=== PATIENT | male | born 1950 | race Caucasian/White ===

== ENCOUNTER 2018-05-23 11:04 | Day surgery (SDC) | payer OTHER ==
[~2018-05-23 11:04] MED LIST: ACETAMINOPHEN 325 MG TAB PO; PROPARACAINE 0.5% OPHTH SOL 15ML OD
[2018-05-23 11:48] LABS: BEDSIDE GLUCOSE 191 MG/DL (80-115)
[2018-05-23] MEDS: LIDOCAINE 3.5 % 1ML OPHTH TOPICAL GEL OU (11:50)
[2018-05-23] MEDS: OFLOXACIN 0.3 % (OCUFLOX) OPTH SOL 5ML OD (11:50)
[2018-05-23] MEDS: TROPICAMIDE 1% OPHTH SOLN 2ML OD (11:51)
[2018-05-23] MEDS: CYCLOPENTOLATE 2% OPHTH SOLN 2ML BTL OD (11:51)
[2018-05-23] MEDS: PHENYLEPHRINE 2.5% OPHTH SOL 2ML OD (11:51)
[2018-05-23] MEDS ORDERED: MIDAZOLAM INJ 2 MG/2 ML VIAL (J2250) As Ordered (12:01)
[2018-05-23] MEDS ORDERED: fentaNYL 100 MCG/2 ML INJECTION (J3010) As Ordered (12:01)
[2018-05-23] MEDS: LIDOCAINE 1% SDV 5 ML VIAL As Ordered (13:08)
[2018-05-23] MEDS: PHENYLEPHRINE HCL 10 % OPHTH. SOL 5ML OD (13:08)
[2018-05-23] MEDS: HEALON DUET (HEALON 10MG/ML 0.55ML & HEALON ENDOCOAT 30MG/ML 0.85ML) As Ordered (13:08)
[2018-05-23] MEDS: CEFUROXIME 1MG/0.1ML INTRACAMERAL INJ As Ordered (13:08)
[2018-05-23] MEDS: POVIDONE-IODINE 5% OPHTH PREP SOL 30ML As Ordered (13:08)
[2018-05-23] MEDS ORDERED: TRIMETHOBENZAMIDE 300 MG CAP PO (14:00)
[2018-05-23] MEDS: KETOROLAC 0.5% OPHTH SOLN OD (14:01)
[2018-05-23] MEDS: AcetaZOLAMIDE 500 MG ER CAP PO (14:01)
== END 2018-05-23 14:22 | disposition home or self-care (01) ==
LOC: M SDC 14:22
DX: H25.11 Age-related nuclear cataract, right eye (principal); I25.10 Atherosclerotic heart disease of native coronary artery without angina pectoris; Z98.61 Coronary angioplasty status; I10 Essential (primary) hypertension; E78.5 Hyperlipidemia, unspecified; G47.30 Sleep apnea, unspecified; E10.9 Type 1 diabetes mellitus without complications; Z79.4 Long term (current) use of insulin; Z79.02 Long term (current) use of antithrombotics/antiplatelets; Z79.899 Other long term (current) drug therapy
CPT/HCPCS: 66984

== ENCOUNTER 2018-06-06 09:32 | Day surgery (SDC) | payer OTHER ==
[2018-06-06] MEDS: ACETYLCHOLINE OPHTH SOLN 1% 2ML (MIOCHOL-E) As Ordered (07:06)
[~2018-06-06 09:32] MED LIST changes: +PHENYLEPHRINE HCL 10 % OPHTH. SOL 5ML OS; -PROPARACAINE 0.5% OPHTH SOL 15ML OD; +PROPARACAINE 0.5% OPHTH SOL 15ML OS
[2018-06-06] MEDS: PHENYLEPHRINE 2.5% OPHTH SOL 2ML OS (10:30)
[2018-06-06] MEDS: TROPICAMIDE 1% OPHTH SOLN 2ML OS (10:30)
[2018-06-06] MEDS: CYCLOPENTOLATE 2% OPHTH SOLN 2ML BTL OS (10:30)
[2018-06-06] MEDS: OFLOXACIN 0.3 % (OCUFLOX) OPTH SOL 5ML OS (10:30)
[2018-06-06] MEDS: LIDOCAINE 3.5 % 1ML OPHTH TOPICAL GEL OU (10:30)
[2018-06-06 10:33] LABS: BEDSIDE GLUCOSE 90 MG/DL (80-115)
[2018-06-06] MEDS ORDERED: MIDAZOLAM INJ 2 MG/2 ML VIAL (J2250) As Ordered (11:30)
[2018-06-06] MEDS ORDERED: fentaNYL 100 MCG/2 ML INJECTION (J3010) As Ordered (11:31)
[2018-06-06] MEDS: POVIDONE-IODINE 5% OPHTH PREP SOL 30ML As Ordered (12:05)
[2018-06-06] MEDS: BALANCED SALT IRRIGATION SOLUTION 500ML BAG (FOR OR EYE MACHINE) As Ordered (12:07)
[2018-06-06] MEDS: HEALON DUET (HEALON 10MG/ML 0.55ML & HEALON ENDOCOAT 30MG/ML 0.85ML) As Ordered (12:07)
[2018-06-06] MEDS: LIDOCAINE 1% SDV 5 ML VIAL As Ordered (12:07)
[2018-06-06] MEDS: CEFUROXIME 1MG/0.1ML INTRACAMERAL INJ As Ordered (12:07)
[2018-06-06] MEDS ORDERED: TRIMETHOBENZAMIDE 300 MG CAP PO (12:30)
[2018-06-06] MEDS: KETOROLAC 0.5% OPHTH SOLN OS (12:35)
[2018-06-06] MEDS: AcetaZOLAMIDE 500 MG ER CAP PO (12:35)
== END 2018-06-06 13:00 | disposition home or self-care (01) ==
LOC: M SDC 09:32
DX: H25.12 Age-related nuclear cataract, left eye (principal); I10 Essential (primary) hypertension; I25.10 Atherosclerotic heart disease of native coronary artery without angina pectoris; I25.2 Old myocardial infarction; Z98.61 Coronary angioplasty status; Z95.1 Presence of aortocoronary bypass graft; E78.5 Hyperlipidemia, unspecified; Z79.02 Long term (current) use of antithrombotics/antiplatelets; G47.33 Obstructive sleep apnea (adult) (pediatric)
CPT/HCPCS: 66984

== ENCOUNTER 2021-05-03 14:54 | Emergency (ER) | payer MEDICARE, OTHER ==
[~2021-05-03] VITALS: Ht 190.5 cm; Wt 104.0 kg
[~2021-05-03 14:54] MED LIST changes: -ACETAMINOPHEN 325 MG TAB PO; +ADVA1AER2; +ALBU83IN; +AMAR1TAB6; +ARIC1TAB2 PO; +ARIC5TAB; +BASA100I SC; +BUPR300T92 PO; +CELE20TA; +CITA20TA6 PO; +COUM1TAB19; +DOXY100C3 PO; +FENO145T7 PO; +GLIM4TAB5 PO; +GLUC1000; +INSULANT; +KLOR10TA; +LASI40TA; +LOPR100T; +LYRI150C; +MELOPOW; +NIAS500T2; +NITR0.4S; +OMEP40CA4 PO; -PHENYLEPHRINE HCL 10 % OPHTH. SOL 5ML OS; +PLAV75TA2; -PROPARACAINE 0.5% OPHTH SOL 15ML OS; +PROV90AE; +PROZ40CA; +RANO5TAB; +SPIR1CAP; +TRAZ50TA; +TRIC1TAB; +XARE20TA PO; +ZETI10TA; +digitek; +januvia
[2021-05-03 15:20] VITALS: BP 158/73
[2021-05-03] MEDS ORDERED: MORPHINE 2 MG/ML 1ML VIAL (J2270) IV ONE (16:15)
[2021-05-03] MEDS ORDERED: ONDANSETRON 4MG/2ML VIAL IV ONE (16:15)
[2021-05-03 17:12] LABS: HEMATOCRIT 43.3 % (42.0-52.0); HEMOGLOBIN 14.8 g/dl (13.5-17.5); MEAN CORPUSCULAR HEMOGLOBIN 35.4 pg (27.0-33.0); MEAN CORPUSCULAR HGB CONC 34.2 g/dl (32.0-36.5); MEAN CORPUSCULAR VOLUME 103.6 fl (80.0-96.0); PLATELET COUNT, AUTOMATED 201 10^3/uL (150-450); RED BLOOD COUNT 4.18 10^6/uL (4.30-6.10); WHITE BLOOD COUNT 9.9 10^3/uL (4.0-10.0)
[2021-05-03 17:30] LABS: PROTHROMBIN TIME 23.1 SECONDS (12.5-14.3)
[2021-05-03 17:34] LABS: BLOOD UREA NITROGEN 15 MG/DL (7-18); CALCIUM LEVEL 9.2 MG/DL (8.8-10.2); CARBON DIOXIDE LEVEL 33 MEQ/L (21-32); CHLORIDE LEVEL 104 MEQ/L (98-107); CREATININE FOR GFR 0.94 MG/DL (0.70-1.30); GLOMERULAR FILTRATION RATE > 60.0 (>42); GLUCOSE, FASTING 199 MG/DL (70-100); POTASSIUM SERUM 3.9 MEQ/L (3.5-5.1); SODIUM LEVEL 144 MEQ/L (136-145)
== END 2021-05-03 18:37 | disposition home or self-care (01) ==
LOC: M ED 14:54
DX: S00.81XA Abrasion of other part of head, initial encounter (principal); W18.39XA Other fall on same level, initial encounter; Y92.018 Other place in single-family (private) house as the place of occurrence of the external cause; I10 Essential (primary) hypertension; E11.9 Type 2 diabetes mellitus without complications; Z91.19 Patient's noncompliance with other medical treatment and regimen; Z79.899 Other long term (current) drug therapy; Z79.01 Long term (current) use of anticoagulants; Z79.4 Long term (current) use of insulin
CPT/HCPCS: 70450; 73502; 73552; 80048; 85027; 85610; 96374; 96375; 99284; J2270; J2405

== ENCOUNTER 2021-08-10 20:44 | Observation (INO) | payer MEDICARE ==
[~2021-08-10] VITALS: Ht 182.9 cm; Wt 115.8 kg
[2021-08-10] MEDS ORDERED: LEVEMIR (INSULIN DETEMIR) 1 UNITS/0.01ML SC SCH (21:00)
[2021-08-10 22:19] LABS: BASO % 0.2 % (0.0-1.0); HEMATOCRIT 41.9 % (42.0-52.0); HEMOGLOBIN 14.1 g/dl (13.5-17.5); LYMPH # 0.7 10^3/uL (1.5-5.0); LYMPH % 11.3 % (24.0-44.0); MEAN CORPUSCULAR HEMOGLOBIN 35.1 pg (27.0-33.0); MEAN CORPUSCULAR HGB CONC 33.7 g/dl (32.0-36.5); MEAN CORPUSCULAR VOLUME 104.2 fl (80.0-96.0); MONO # 0.6 10^3/uL (0.0-0.8); MONO % 9.2 % (2.0-8.0); NEUTROPHILS # 4.8 10^3/uL (1.5-8.5); PLATELET COUNT, AUTOMATED 157 10^3/uL (150-450); RED BLOOD COUNT 4.02 10^6/uL (4.30-6.10); WHITE BLOOD COUNT 6.1 10^3/uL (4.0-10.0)
[2021-08-10] MEDS ORDERED: NS 1,000 ML IV ONE (22:25)
[2021-08-10 22:49] LABS: ALT/SGPT 21 U/L (12-78); BILIRUBIN,DIRECT 0.2 MG/DL (0.0-0.2); BILIRUBIN,TOTAL 1.4 MG/DL (0.2-1.0); BLOOD UREA NITROGEN 12 MG/DL (7-18); CALCIUM LEVEL 8.4 MG/DL (8.8-10.2); CARBON DIOXIDE LEVEL 25 MEQ/L (21-32); CHLORIDE LEVEL 101 MEQ/L (98-107); CK-MB VALUE MASS 2.4 NG/ML (<3.6); CPK CREATINE PHOSPHOKINASE 264 U/L (39-308); CREATININE FOR GFR 0.93 MG/DL (0.70-1.30); GLOMERULAR FILTRATION RATE > 60.0 (>42); GLUCOSE, FASTING 213 MG/DL (70-100); LIPASE 75 U/L (73-393); MB/CK RELATIVE INDEX 0.91 (< OR =4); POTASSIUM SERUM 4.3 MEQ/L (3.5-5.1); SODIUM LEVEL 136 MEQ/L (136-145); TOTAL PROTEIN 7.3 GM/DL (6.4-8.2); TROPONIN I < 0.02 NG/ML (< 0.10)
[2021-08-10 23:01] LABS: RSV AMPLIFICATION NEGATIVE (NEGATIVE)
[2021-08-11] MEDS ORDERED: ACETAMINOPHEN TAB 650MG DOSE (2X325MG) PO PRN (01:50)
[2021-08-11] MEDS ORDERED: POTA1TAB14 PO (01:54)
[2021-08-11] MEDS ORDERED: NITR4TASL SL (01:54)
[2021-08-11] MEDS ORDERED: ADV250INH INH (01:54)
[2021-08-11] MEDS ORDERED: DOXY100C3 PO (01:54)
[2021-08-11] MEDS ORDERED: CELE10TA PO (01:54)
[2021-08-11] MEDS ORDERED: ALBU83IN INH (01:54)
[2021-08-11] MEDS ORDERED: BUPR-332 PO (01:54)
[2021-08-11] MEDS ORDERED: OMEP1CAP73 PO (01:54)
[2021-08-11] MEDS ORDERED: ROPI0.5T3 PO (01:54)
[2021-08-11] MEDS ORDERED: CARA1TAB6 PO (01:54)
[2021-08-11] MEDS ORDERED: ALBU8.5H INH (01:54)
[2021-08-11] MEDS ORDERED: METO1TAB33 PO (01:54)
[2021-08-11] MEDS ORDERED: HOME MED LIST COMPLETE! XX SCH (01:55)
[2021-08-11] MEDS ORDERED: ALBUTEROL 90 MCG/ACT 8GM HFA INHALER INH PRN (02:00)
--- NOTE | 2021-08-11 02:12 | HPEPDOC ---
General Date of Admission Aug 11, 2021 at 01:46 Date of Service: Aug 11, 2021 Chief Complaint The patient is a 71-year-old male admitted with a reason for visit of Covid-19, Generalized Weakness. Source: Patient History of Present Illness Broderick Hager is a 71-year-old male with significant medical history of CAD, CABG, diabetes, HDL, asthma and hypertension who lives alone and arrives with complaints of generalized weakness past 4 days. Tonight, patient reportedly unable to get up from recliner due to his progressive generalized weakness and thus he called EMS. Patient is somewhat poor historian however he is oriented x3. He does admit to memory issues in which he is seeing a provider for. Patient reports that he lives at home and ambulates with a cane. He does d escribe a progressive functional decline over the past year but noticeably increased fatigue/generalized weakness past 4 days. He reports he has a surgical history that leaves him with left lower extremity numbness tingling at baseline occasionally. 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 He describes poor p.o. intake as he has trouble with fork and spoon at times as well as decreased appetite. When asked regarding URI type symptoms he does report some productive cough but denies macedo, sinus congestion, sore throat, sob, palpitations, chest pain, n/v/d, abdominal pain, sensory wesley nges or syncope. During work-up pt was found to be Covid positive. When asked regarding vaccination status patient denies having heard of Covid prior to now. However over time during the exam patient then asked if Covid is the same as Covid13. As far as pt is able to recollect, he has had no recent vaccinations completed. Chest x-ray pending. Nonfocal neuro exam. Patient without leukocytosis or lactic acidosis. Blood glucose 213. Patient will be admitted for further evaluation management of presenting concerns. Home Medications Scheduled Bupropion HCl (Bupropion Xl) 150 Mg Tab.er.24h, 150 MG PO DAILY, (Reported) Citalopram Hydrobromide (Celexa) 10 Mg Tablet, 10 MG PO DAILY, (Reported) Doxycycline Hyclate (Doxycycline Hyclate) 100 Mg Capsule, 100 MG PO BID, (Re ported) STARTED ON 08/09/21 Glimepiride (Glimepiride) 4 Mg Tab, 4 MG PO BID, (Reported) Insulin Glargine,Hum.rec.anlog (Basaglar Kwikpen U-100) 100 Unit/Ml Inj, 60 UNIT SC QHS, (Reported) Metoprolol Succinate (Metoprolol Succinate) 100 Mg Tab.er.24h, 100 MG PO DAILY, (Reported) Omeprazole (Omeprazole) 20 Mg Capsule.dr, 20 MG PO DAILY, (Reported) Potassium Chloride (Potassium Chloride) 20 Meq Tablet.er, 20 MEQ PO DAILY, (Reported) Rivaroxaban (Xarelto) 20 Mg Tab, 20 MG PO DAILY, (Reported) Ropinirole HCl (Ropinirole HCl) 0.5 Mg Tablet, 0.25 MG PO TID, (Reported) Salmeterol/Fluticasone (Advair 250-50 Diskus) 1 Each Blst.w.dev, 1 PUFF INH BID, (Reported) Sucralfate (Carafate) 1 Gm Tablet, 1 GM PO ACHS, (Reported) Scheduled PRN Albuterol Sulf (Albuterol Sulfate) 2.5 Mg/3 Ml Vial.neb, 2.5 MG INH Q4H PRN for SOB/WHEEZING, (Reported) Albuterol Sulfate (Albuterol Sulfate Hfa) 8.5 Gm Hfa.aer.ad, 2 PUFFS INH QID PRN for SHORTNESS OF BREATH, (Reported) Nitroglycerin (Nitrostat) 0.4 Mg Tab.subl, 0.4 MG SL NITRO PRN for CHEST PAIN, (Reported) Allergies Coded Allergies: No Known Drug Allergies (Verified Allergy, Unknown, 08/10/21) Past Medical History Medical History Diabetes, hypertension, CAD, memory impairment Surgical History Cardiac stent CABG, left lower extremity surgery Family History Significant Family History: No pertinent family hx Social History * Smoker: former Smoker (smoked 1ppd for about 10 years; quit 20 years ago ) Alcohol: rarely Recent Travel/Sick Contacts: Reports: Recent travel (Patient alludes to cabin [place] the [place] with other shared cannot members but is vague on timing or if anyone actively sick) Psychosocial History: Depression, Other (Mild cognitive impairment) Patient lives alone, ambulates with cane and describes trouble with utensils. A-FIB/CHADSVASC A-FIB History Current/History of A-Fib/PAF?: Yes Current PO Anticoag Therapy: Yes Review of Systems Constitutional: Reports: Weakness, Fatigue; Denies: Chills, Fever, Night Sweats Eyes: Denies: Pain, Vision change ENT: Denies: Head Aches, Ear Pain, Dysphagia Skin: Denies: Rash, Lesions, Breakdown Pulmonary: Denies: Dyspnea, Cough Cardiovascular: Denies: Chest Pain, Palpitations, Orthopnea, Paroxysmal Noc. Dyspnea, Lt Headedness Gastrointestinal: Denies: Nausea, Vomiting, Abdominal Pain, Diarrhea Genitourinary: Denies: Dysuria, Frequency, Incontinence, Retention Hematologic: Denies: Bruising, Bleeding Excessively Musculoskeletal: Denies: Neck Pain, Back Pain, Joint Pain, Muscle Pain, Spasms Neurological: Denies: Weakness, Numbness, Change in speech, Confusion Psych: Reports: Mood Normal, Memory Issues; Denies: Depression Physical Examination General Exam: Positive: Alert, Cooperative, No Acute Distress Eye Exam: Positive: PERRLA, Conjunctiva & lids normal, EOMI; Negative: Sclera icteric ENT Exam: Positive: Atraumatic, Mucous membr. moist/pink, Pharynx Normal Neck Exam: Positive: Supple; Negative: JVD, thyromegaly Chest Exam: Positive: Clear to auscultation, Normal air movement Heart Exam: Positive: Rate Normal, Regular Rhythm, Normal S1, Normal S2; Negative: Murmurs, Rubs Telemetry: Positive: No significant arrhythmia Abdomen Exam: Positive: Normal bowel sounds, Soft; Negative: Tenderness, Hepatospenomegaly Extremity Exam: Positive: Normal pulses; Negative: Clubbing, Cyanosis, Edema Skin Exam: Positive: Nl turgor and temperature; Negative: Breakdown, Lesion Neuro Exam: Positive: Normal Gait, Normal Speech, Cranial Nerves 3-12 NL, Reflexes 2+ Psych Exam: Positive: Mental status NL, Mood NL, Oriented x 3; Negative: Memory Intact (poor historian, notable MCI) Vital Signs Vital Signs Date Time Temp Pulse Resp B/P (MAP) Pulse Ox O2 Delivery O2 Flow Rate FiO2 08/11/21 01:15 89 16 143/72 (95) 96 Room Air 08/10/21 20:54 97.9 Laboratory Data Labs 24H Laboratory Tests 2 08/10/21 21:53: Immature Granulocyte % (Auto) 0.3, Neutrophils (%) (Auto) 79.0H, Lymphocytes (%) (Auto) 11.3L, Monocytes (%) (Auto) 9.2H, Eosinophils (%) (Auto) 0.0, Basophils (%) (Auto) 0.2, Neutrophils # (Auto) 4.8, Lymphocytes # (Auto) 0.7L, Monocytes # (Auto) 0.6, Eosinophils # (Auto) 0.0, Basophils # (Auto) 0.0, Nucleated Red Blood Cells % (auto) 0.0, Anion Gap 10, Glomerular Filtration Rate > 60.0, Lactic Acid Level 0.7, Calcium Level 8.4L, Total Bilirubin 1.4H, Direct Bilirubin 0.2, Aspartate Amino Transf (AST/SGOT) 34, Alanine Aminotransferase (ALT/SGPT) 21, Alkaline Phosphatase 61, Total Creatine Kinase 264, Creatine Kinase MB 2.4, Creatine Kinase MB Relative Index 0.91, Troponin I < 0.02, Total Protein 7.3, Albumin 3.0L, Albumin/Globulin Ratio 0.7, Lipase 75, Coronavirus (COVID-19)(PCR) POSITIVEA, Influenza Type A (RT-PCR) NEGATIVE, Influenza Type B (RT-PCR) NEGATIVE, Respiratory Syncytial Virus (PCR) NEGATIVE CBC/BMP Laboratory Tests 08/10/21 21:53 Assessment/Plan 1. Generalized weakness in setting of Covid: Patient tolerating room air and not hypoxic. Chest x-ray nonacute. He does describe deconditioning progressive over the past year at baseline. -Monitor pt, respiratory status -Oxygen if needed to keep SPO2 greater than 92% -Antitussives as needed -Scheduled and as needed breathing treatments -Decadron 6mg IV Daily x10 days -Patient uncertain to consent for Mab. Time spent with patient discussing risk factors and explaining Mab as well as Covid. Patient would benefit from further discussion and possible Mab infusion. -A.m. labs 2. Diabetes: -Check A1c. -Monitor patient blood glucose ACHS. Sliding scale insulin. -Patient reports poor p.o. and blood glucose 160-213 during mission process. His long-acting has been placed on hold to monitor response to steroids and whether or not needing continuation. -A.m. labs 3. Paroxysmal A. fib: Telemetry monitoring, continue patient home medications. Continue Xarelto. 4. Depression: Monitor patient mood, encourage nonpharmacologic methods to manage. De-escalation techniques accordingly. Continue patient home medication. 5. GERD: Continue omeprazole and sucralfate 6. Left lower extremity numbness tingling/restless leg syndrome: Continue Requip 7. Cognitive impairment: Patient reports that he does see a provider but again is poor historian regarding who. He does describes having trouble cooking for himself and walking with a cane as well as trouble operating utensils. Per chart review patient had been started on Aricept for memory issues in 2009 however is not listed as an active home med presently. -Patient reports that he does want to go home but would benefit from some assistance at home. Appreciate PT/OT evaluation. Appreciate case management for discharge planning. DVT prophylaxis: SAY Urena CODE STATUS: Full code. Patient reports that he does does not have children. He does describe older siblings alive however 1 with described dementia and he does not elect anyone specifically for medical surrogacy. Additionally, when asked regarding close friends he reports that he does have close friends but "cannot bother those people with it". Patient may benefit from advance care planning/directive discussion for future planning. Disposition: Anticipate less than 2 midnight stay. Plan / VTE VTE Prophylaxis Ordered?: Yes ZORAIDA JASON NP Aug 11, 2021 02:07
[2021-08-11 02:37] LABS: MAGNESIUM LEVEL 1.3 MG/DL (1.8-2.4)
--- NOTE | 2021-08-11 02:49 | REPVR ---
PROCEDURE INFORMATION: Exam: XR Chest Exam date and time: 08/10/21 (11:12pm) Age: 71 years old Clinical indication: Weakness TECHNIQUE: Imaging protocol: Portable CXR Views: 1 view COMPARISON: No relevant prior studies available FINDINGS: No prior chest films are available for comparison. Slightly suboptimal inspiratory effort. Cardiomegaly. S/P sternotomy and CABG surgery. Mild elevation of the left hemidiaphragm. Mildly prominent lung markings. No focal infiltrates. No definite pleural effusions. No pneumothorax. IMPRESSION: No acute findings. Cardiomegaly. S/P sternotomy and CABG surgery. Electronically signed by: Evelin Small On 08/11/2021 02:48:19 AM
[2021-08-11] MEDS: dexameTHASONE 20MG/5ML VIAL (J1100 PER 1MG) IV SCH ×2 (03:25→08:31)
[2021-08-11] MEDS: rOPINIRole 0.25 MG TAB(REQUIP) PO SCH ×4 (04:03→21:03)
[2021-08-11 04:14] VITALS: BP 143/84
[2021-08-11] MEDS ORDERED: GLUCOSE 4GM CHEW TABLET PO PRN (04:15)
[2021-08-11] MEDS ORDERED: DEXTROSE 50% 50 ML SYRINGE IV PRN (04:15)
[2021-08-11] MEDS ORDERED: GLUCAGON INJ 1MG VIAL SC PRN (04:15)
[2021-08-11 04:30] VITALS: O2SAT 93
[2021-08-11 06:16] LABS: BASO % 0.2 % (0.0-1.0); EOS % 0.2 % (0.0-3.0); HEMATOCRIT 40.9 % (42.0-52.0); LYMPH # 0.6 10^3/uL (1.5-5.0); LYMPH % 10.4 % (24.0-44.0); MEAN CORPUSCULAR HEMOGLOBIN 35.8 pg (27.0-33.0); MEAN CORPUSCULAR HGB CONC 34.2 g/dl (32.0-36.5); MEAN CORPUSCULAR VOLUME 104.6 fl (80.0-96.0); MONO # 0.3 10^3/uL (0.0-0.8); MONO % 4.9 % (2.0-8.0); NEUTROPHILS # 4.8 10^3/uL (1.5-8.5); NEUTROPHILS % 83.9 % (36.0-66.0); PLATELET COUNT, AUTOMATED 137 10^3/uL (150-450); RED BLOOD COUNT 3.91 10^6/uL (4.30-6.10); WHITE BLOOD COUNT 5.7 10^3/uL (4.0-10.0)
[2021-08-11 06:31] LABS: HEMOGLOBIN A1c 10.2 %
[2021-08-11 06:42] LABS: BLOOD UREA NITROGEN 11 MG/DL (7-18); CARBON DIOXIDE LEVEL 26 MEQ/L (21-32); CHLORIDE LEVEL 101 MEQ/L (98-107); CREATININE FOR GFR 0.79 MG/DL (0.70-1.30); GLOMERULAR FILTRATION RATE > 60.0 (>42); GLUCOSE, FASTING 182 MG/DL (70-100); POTASSIUM SERUM 3.4 MEQ/L (3.5-5.1); SODIUM LEVEL 137 MEQ/L (136-145)
[2021-08-11] MEDS: ADVAIR HFA 115/21MCG INHALER INH SCH ×2 (08:00→19:58)
[2021-08-11] MEDS: buPROPion **XL** TABLET 150MG (WELLBUTRIN XL) PO SCH (08:29)
[2021-08-11] MEDS: OMEPRAZOLE 20 MG CAP PO SCH (08:29)
[2021-08-11] MEDS: CitaloPRAM (CeleXA) 10 MG TABLET PO SCH (08:29)
[2021-08-11] MEDS: RIVAROXABAN 20 MG TAB (XARELTO) PO SCH (08:30)
[2021-08-11] MEDS: POTASSIUM CHLORIDE 10MEQ SR TABLET PO SCH (08:30)
[2021-08-11] MEDS: METOPROLOL SUCC (TopROL XL) 100MG *XL* TAB PO SCH (08:30)
[2021-08-11] MEDS: SUCRALFATE 1 GM TAB PO SCH ×4 (08:30→21:00)
[2021-08-11] MEDS: HumaLOG INSULIN (NovoLOG) PER UNIT SC SCH ×3 (08:31→17:21)
[2021-08-11] MEDS ORDERED: POTASSIUM CHLORIDE 10MEQ SR TABLET PO ONE (09:00)
[2021-08-11] MEDS ORDERED: REMDESIVIR 200 MG in NS 250 ML IV ONE (11:00)
[2021-08-11] MEDS ORDERED: SODIUM CHLORIDE 0.9% INJ 10 ML SYR IV ONE (11:00)
[2021-08-11 14:00] VITALS: BP 134/79
--- NOTE | 2021-08-11 17:45 | IPNPDOC ---
Date Seen The patient was seen on 08/11/21. Progress Note SUBJECTIVE: Currently on 4 L nasal cannula, awake and at his baseline. No acute events overnight. Denies chest pain, increased shortness of breath, fevers, chills, nausea, vomiting. OBJECTIVE: VITAL SIGNS: Please see below PHYSICAL EXAMINATION: CONSTITUTIONAL: No acute distress, resting comfortably, AAO x 3 EYES: PERRLA, EOM intact HENT, MOUTH: Normocephalic, atraumatic, moist mucous membranes, NC in place NECK: SUPPLE, no JVD, no lymphadenopathy, no carotid bruit CV: Regular rate and rhythm, S1S2 normal, no murmurs/rubs/gallops RESPIRATORY: decreased breath sounds b/l, no rales/rhonchi/wheezes GI: BS positive in 4 quadrants, soft, nontender, nondistended, no rebound or guarding, no organomegaly : Deferred MUSCULOSKELETAL: Normal ROM. No cyanosis, clubbing, swelling, joint deformity, extremity edema INTEGUMENTARY: Intact, no rashes, no lesions, no erythema NEUROLOGIC: Cranial Nerves II-XII are intact, no focal deficits PSYCHIATRIC: Mood and affect are normal CURRENT MEDICATIONS: Please see below LABORATORY DATA: Please see below IMAGING: See chart MICRO: F/u UA, blood cultures ASSESSMENT: 71 y/o M admitted for generalized weakness 2/2 to COVID-19 infection. PLAN: Generalized weakness 2/2 to COVID-19 infection -Increased lethargy, decreased appetite -likely baseline deconditioned state, worsened over past year -D/c decadron, c/w remdesivir -PT: Pt is currently deconditioned and functioning below his PLOF, will benefit from skilled PT to improve safety and (I) prior to d/c. updated. -Daily labs -Monitor pt, respiratory status -Encourage Po intake, PT/OT COVID-19 infection -Remains on RA -Remdesivir only, cannot to MAB as inpatient -COVID labs per protocol Hypokalemia -Supplement PRN DM uncontrolled -HbA1c >10, B S>300 today -Monitor patient blood glucose ACHS. Sliding scale insulin. -Restarting HS levemir at 40 [address], not home dose -Daily labs Paroxysmal A. fib -Stable, rate controlled -C/w home meds. xarelto Depression -Stable -C/w home meds GERD -Continue omeprazole and sucralfate Left lower extremity numbness tingling/restless leg syndrome -continue Requip Cognitive impairment -At baseline. -Patient reports that he does see a provider but again is poor historian regarding who. He does describes having trouble cooking for himself and walking with a cane as well as trouble operating utensils. Per chart review patient had been started on Aricept for memory issues in 2009 however is not listed as an active home med presently. -Patient reports that he does want to go home but would benefit from some assistance at home. Appreciate PT/OT evaluation. Appreciate case management for discharge planning. DVT prophylaxis: SAY Urena Disposition: C/w PT/OT. Plan is d/c home when medically improved. VS, I&O, 24H, Fishbone Vital Signs/I&O Vital Signs Date Time Temp Pulse Resp B/P (MAP) Pulse Ox O2 Delivery O2 Flow Rate FiO2 08/11/21 14:00 99.5 77 20 134/79 (97) 91 Room Air I&O- Last 24 Hours up to 6 AM 08/11/21 06:00 Intake Total 1000 ml Output Total 100 ml Balance 900 ml Laboratory Data 24H LABS Laboratory Tests 2 08/10/21 21:53: Immature Granulocyte % (Auto) 0.3, Neutrophils (%) (Auto) 79.0H, Lymphocytes (%) (Auto) 11.3L, Monocytes (%) (Auto) 9.2H, Eosinophils (%) (Auto) 0.0, Basophils (%) (Auto) 0.2, Neutrophils # (Auto) 4.8, Lymphocytes # (Auto) 0.7L, Monocytes # (Auto) 0.6, Eosinophils # (Auto) 0.0, Basophils # (Auto) 0.0, Nucleated Red Blood Cells % (auto) 0.0, Anion Gap 10, Glomerular Filtration Rate > 60.0, Lactic Acid Level 0.7, Calcium Level 8.4L, Magnesium Level 1.3L, Total Bilirubin 1.4H, Direct Bilirubin 0.2, Aspartate Amino Transf (AST/SGOT) 34, Alanine Aminotransferase (ALT/SGPT) 21, Alkaline Phosphatase 61, Total Creatine Kinase 264, Creatine Kinase MB 2.4, Creatine Kinase MB Relative Index 0.91, Troponin I < 0.02, Total Protein 7.3, Albumin 3.0L, Albumin/Globulin Ratio 0.7, Lipase 75, Coronavirus (COVID-19)(PCR) POSITIVEA, Influenza Type A (RT-PCR) NEGATIVE, Influenza Type B (RT-PCR) NEGATIVE, Respiratory Syncytial Virus (PCR) NEGATIVE 08/11/21 03:54: Bedside Glucose (Misc Panel) 157H 08/11/21 05:51: Immature Granulocyte % (Auto) 0.4, Neutrophils (%) (Auto) 83.9H, Lymphocytes (%) (Auto) 10.4L, Monocytes (%) (Auto) 4.9, Eosinophils (%) (Auto) 0.2, Basophils (%) (Auto) 0.2, Neutrophils # (Auto) 4.8, Lymphocytes # (Auto) 0.6L, Monocytes # (Auto) 0.3, Eosinophils # (Auto) 0.0, Basophils # (Auto) 0.0, Nucleated Red Blood Cells % (auto) 0.0, Anion Gap 10, Glomerular Filtration Rate > 60.0, Calcium Level 8.0L, Estimated Mean Plasma Glucose 246H, Hemoglobin A1c 10.2 08/11/21 11:42: Bedside Glucose (Misc Panel) 366H 08/11/21 11:46: D-Dimer, Quantitative 816.09H 08/11/21 16:52: Bedside Glucose (Misc Panel) 320H CBC/BMP Laboratory Tests 08/10/21 21:53 08/11/21 05:51 Virginia Goetz MD Aug 11, 2021 17:45
[2021-08-11 20:55] VITALS: BP 133/64
[2021-08-11 21:00] VITALS: O2SAT 95
[2021-08-11] MEDS ORDERED: HumaLOG INSULIN (NovoLOG) PER UNIT SC SCH (21:00)
[2021-08-11] MEDS ORDERED: LEVEMIR (INSULIN DETEMIR) 1 UNITS/0.01ML SC SCH (21:00)
[2021-08-12] VITALS: O2SAT 96
[2021-08-12 04:00] VITALS: O2SAT 97
[2021-08-12 04:43] VITALS: BP 138/76
[2021-08-12 07:06] LABS: HEMATOCRIT 42.4 % (42.0-52.0); HEMOGLOBIN 14.3 g/dl (13.5-17.5); LYMPH # 0.8 10^3/uL (1.5-5.0); LYMPH % 11.5 % (24.0-44.0); MEAN CORPUSCULAR HEMOGLOBIN 35.1 pg (27.0-33.0); MEAN CORPUSCULAR HGB CONC 33.7 g/dl (32.0-36.5); MEAN CORPUSCULAR VOLUME 104.2 fl (80.0-96.0); MONO # 0.4 10^3/uL (0.0-0.8); NEUTROPHILS # 5.4 10^3/uL (1.5-8.5); PLATELET COUNT, AUTOMATED 153 10^3/uL (150-450); RED BLOOD COUNT 4.07 10^6/uL (4.30-6.10); WHITE BLOOD COUNT 6.5 10^3/uL (4.0-10.0)
[2021-08-12 07:33] LABS: BLOOD UREA NITROGEN 18 MG/DL (7-18); CALCIUM LEVEL 8.2 MG/DL (8.8-10.2); CARBON DIOXIDE LEVEL 28 MEQ/L (21-32); CHLORIDE LEVEL 104 MEQ/L (98-107); CREATININE FOR GFR 0.81 MG/DL (0.70-1.30); GLOMERULAR FILTRATION RATE > 60.0 (>42); GLUCOSE, FASTING 220 MG/DL (70-100); MAGNESIUM LEVEL 1.9 MG/DL (1.8-2.4); POTASSIUM SERUM 4.3 MEQ/L (3.5-5.1); SODIUM LEVEL 140 MEQ/L (136-145)
[2021-08-12] MEDS: HumaLOG INSULIN (NovoLOG) PER UNIT SC SCH ×2 (07:45→12:41)
[2021-08-12 08:00] VITALS: O2SAT 97
[2021-08-12] MEDS: ADVAIR HFA 115/21MCG INHALER INH SCH (08:37)
[2021-08-12] MEDS: buPROPion **XL** TABLET 150MG (WELLBUTRIN XL) PO SCH (08:59)
[2021-08-12] MEDS: POTASSIUM CHLORIDE 10MEQ SR TABLET PO SCH (08:59)
[2021-08-12] MEDS: OMEPRAZOLE 20 MG CAP PO SCH (08:59)
[2021-08-12] MEDS: rOPINIRole 0.25 MG TAB(REQUIP) PO SCH (08:59)
[2021-08-12] MEDS: SUCRALFATE 1 GM TAB PO SCH ×2 (09:00→12:41)
[2021-08-12] MEDS: RIVAROXABAN 20 MG TAB (XARELTO) PO SCH (09:00)
[2021-08-12] MEDS: CitaloPRAM (CeleXA) 10 MG TABLET PO SCH (09:00)
[2021-08-12 09:02] VITALS: BP 133/66
[2021-08-12] MEDS: METOPROLOL SUCC (TopROL XL) 100MG *XL* TAB PO SCH (09:02)
[2021-08-12] MEDS ORDERED: REMDESIVIR 100 MG in NS 250 ML IV SCH ×3 (11:00→17:45)
[2021-08-12] MEDS ORDERED: SODIUM CHLORIDE 0.9% INJ 10 ML SYR IV SCH ×3 (11:00→14:00)
--- NOTE | 2021-08-12 20:58 | DS.PDOC ---
Discharge Summary General Date of Admission Aug 11, 2021 at 01:46 Date of Discharge 08/12/21 Attending Physician: Virginia Goetz MD Discharge Summary HPI: Broderick Hager is a 71-year-old male with significant medical history of CAD, CABG, diabetes, HDL, asthma and hypertension who lives alone and arrives with complaints of generalized weakness past 4 days. Tonight, patient reportedly unable to get up from recliner due to his progressive generalized weakness and thus he called EMS. Patient is somewhat poor historian however he is oriented x3. He does admit to memory issues in which he is seeing a provider for. Patient reports that he lives at home and ambulates with a cane. He does describe a progressive functional decline over the past year but noticeably increased fatigue/generalized weakness past 4 days. He reports he has a surgical history that leaves him with left lower extremity numbness tingling at baseline occasionally. 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 He describes poor p.o. intake as he has trouble with fork and spoon at times as well as decreased appetite. When asked regarding URI type symptoms he does report some productive cough but denies m[place]o, sinus congestion, sore throat, sob, palpitations, chest pain, n/v/d, abdominal pain, sensory changes or syncope. During work-up pt was found to be Covid positive. When asked regarding vaccination status patient denies having heard of Covid prior to now. However over time during the exam patient then asked if Covid is the same as Covid13. As far as pt is able to recollect, he has had no recent vaccinations completed. Chest x-ray pending. Nonfocal neuro exam. Patient without leukocytosis or lactic acidosis. Blood glucose 213. Patient will be admitted for further evaluation management of presenting concerns. HOSPITAL COURSE: The patient remained on room air without difficulty breathing, chest pain, nausea, vomiting. The patient participated with physical therapy both days he was here and each day continued to improve. He was resumed on all his home medications. By 08/12/2021 the patient was cleared by physical therapy and appeared much more awake, improved appetite. He was discharged home to follow-up with his primary care provider with a home health referral. At the time of discharge the patient had no acute complaints PMH: Diabetes, hypertension, CAD, memory impairment SURGICAL HX: Cardiac stent CABG, left lower extremity surgery FAMILY HX: Significant Family History: No pertinent family hx SOCIAL HX: Smoker: former Smoker (smoked 1ppd for about 10 years; quit 20 years ago ) Alcohol: rarely Recent Travel/Sick Contacts: Reports: Recent travel (Patient alludes to cabin [place] with other shared cannot members but is vague on timing or if anyone actively sick) Psychosocial History: Depression, Other (Mild cognitive impairment) Patient lives alone, ambulates with cane and describes trouble with utensils. DISCHARGE MEDS: Please see below PHYSICAL EXAMINATION: CONSTITUTIONAL: No acute distress, more conversant today, AAO x 3 EYES: PERRLA, EOM intact HENT, MOUTH: Normocephalic, atraumatic, moist mucous membranes NECK: SUPPLE, no JVD, no lymphadenopathy, no carotid bruit CV: Regular rate and rhythm, S1S2 normal, no murmurs/rubs/gallops RESPIRATORY: CTAB, no rales/rhonchi/wheezes GI: BS positive in 4 quadrants, soft, nontender, nondistended, no rebound or guarding, no organomegaly : Deferred MUSCULOSKELETAL: Normal ROM. No cyanosis, clubbing, swelling, joint deformity, extremity edema INTEGUMENTARY: Intact, no rashes, no lesions, no erythema NEUROLOGIC: Cranial Nerves II-XII are intact, no focal deficits PSYCHIATRIC: Mood and affect are normal CURRENT MEDICATIONS: Please see below LABORATORY DATA: Please see below IMAGING: See chart MICRO: Bcx NG ASSESSMENT: 71 y/o M admitted for generalized weakness 2/2 to COVID-19 infection. PLAN: Generalized weakness 2/2 to COVID-19 infection, baseline deconditioned state worsened over past year -Improved within 24 hours, remains on RA -PT: cleared for home today -O/P PT/OT, encourage continued monitoring of PO intake, close PCP f/u COVID-19 infection -Remains on RA -S/p Remdesivir , could not give MAB as inpatient but advise patient to get as o/p -COVID labs per protocol Hypokalemia -Supplement PRN DM uncontrolled -C/w home meds Paroxysmal A. fib -Stable, rate controlled -C/w home meds. xarelto Depression -Stable -C/w home meds GERD -Continue omeprazole and sucralfate Left lower extremity numbness tingling/restless leg syndrome -continue Requip Cognitive impairment -At baseline. -Patient reports that he does see a provider but again is poor historian regarding who. He does describes having trouble cooking for himself and walking with a cane as well as trouble operating utensils. Per chart review patient had been started on Aricept for memory issues in 2009 however is not listed as an active home med presently. Disposition:D/c home today with home health referral TIME SPENT ON DISCHARGE: 35 minutes. Vital Signs/I&Os Vital Signs Date Time Temp Pulse Resp B/P (MAP) Pulse Ox O2 Delivery O2 Flow Rate FiO2 08/12/21 09:02 87 133/66 08/12/21 08:00 97 Room Air 08/12/21 04:43 98.1 20 I&O- Last 24 Hours up to 6 AM 08/12/21 06:00 Intake Total 1380 ml Output Total 900 ml Balance 480 ml Laboratory Data Labs 24H Laboratory Tests 2 08/11/21 20:59: Bedside Glucose (Misc Panel) 263H 08/12/21 05:32: Immature Granulocyte % (Auto) 0.5, Neutrophils (%) (Auto) 82.0H, Lymphocytes (%) (Auto) 11.5L, Monocytes (%) (Auto) 6.0, Eosinophils (%) (Auto) 0.0, Basophils (%) (Auto) 0.0, Neutrophils # (Auto) 5.4, Lymphocytes # (Auto) 0.8L, Monocytes # (Auto) 0.4, Eosinophils # (Auto) 0.0, Basophils # (Auto) 0.0, Nucleated Red Blood Cells % (auto) 0.0, Anion Gap 8, Glomerular Filtration Rate > 60.0, Calcium Level 8.2L, Magnesium Level 1.9 08/12/21 11:54: Bedside Glucose (Misc Panel) 274H CBC/BMP Laboratory Tests 08/12/21 05:32 FSBS Laboratory Tests Test 08/11/21 20:59 08/12/21 11:54 Range/Units Bedside Glucose (Misc Panel) 263 274 83-110 MG/DL Microbiology Microbiology 08/11/21 Blood Culture - Preliminary, Resulted No growth after 24 hours . All specim... 08/11/21 Blood Culture - Preliminary, Resulted No growth after 24 hours . All specim... Discharge Medications Scheduled Bupropion HCl (Bupropion Xl) 150 Mg Tab.er.24h, 150 MG PO DAILY, (Reported) Citalopram Hydrobromide (Celexa) 10 Mg Tablet, 10 MG PO DAILY, (Reported) Doxycycline Hyclate (Doxycycline Hyclate) 100 Mg Capsule, 100 MG PO BID, (Reported) STARTED ON 08/09/21 Glimepiride (Glimepiride) 4 Mg Tab, 4 MG PO BID, (Reported) Insulin Glargine,Hum.rec.anlog (Basaglar Kwikpen U-100) 100 Unit/Ml Inj, 60 UNIT SC QHS, (Reported) Metoprolol Succinate (Metoprolol Succinate) 100 Mg Tab.er.24h, 100 MG PO DAILY, (Reported) Omeprazole (Omeprazole) 20 Mg Capsule.dr, 20 MG PO DAILY, (Reported) Potassium Chloride (Potassium Chloride) 20 Meq Tablet.er, 20 MEQ PO DAILY, (Reported) Rivaroxaban (Xarelto) 20 Mg Tab, 20 MG PO DAILY, (Reported) Ropinirole HCl (Ropinirole HCl) 0.5 Mg Tablet, 0.25 MG PO TID, (Reported) Salmeterol/Fluticasone (Advair 250-50 Diskus) 1 Each Blst.w.dev, 1 PUFF INH BID, (Reported) Sucralfate (Carafate) 1 Gm Tablet, 1 GM PO ACHS, (Reported) Scheduled PRN Albuterol Sulf (Albuterol Sulfate) 2.5 Mg/3 Ml Vial.neb, 2.5 MG INH Q4H PRN for SOB/WHEEZING, (Reported) Albuterol Sulfate (Albuterol Sulfate Hfa) 8.5 Gm Hfa.aer.ad, 2 PUFFS INH QID PRN for SHORTNESS OF BREATH, (Reported) Nitroglycerin (Nitrostat) 0.4 Mg Tab.subl, 0.4 MG SL NITRO PRN for CHEST PAIN, (Reported) Allergies Coded Allergies: No Known Drug Allergies (Verified Allergy, Unknown, 08/10/21) Virginia Goetz MD Aug 12, 2021 20:58
[2021-08-12] MEDS ORDERED: LEVEMIR (INSULIN DETEMIR) 1 UNITS/0.01ML SC SCH (21:00)
--- NOTE | 2021-08-14 06:26 | ECGEPIP ---
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
== END 2021-08-12 14:45 | disposition home health service (06) ==
LOC: M ED 20:44 → M ED INP 08-11 01:46 → ENRESERV 08-11 02:17 → M 4MAIN 08-11 04:15
PROVIDERS: ADMIT Family Medicine; ATTEND Family Medicine
DX: U07.1 COVID-19 (principal); R53.1 Weakness; E87.6 Hypokalemia; E11.65 Type 2 diabetes mellitus with hyperglycemia; I48.0 Paroxysmal atrial fibrillation; F32.9 Major depressive disorder, single episode, unspecified; K21.9 Gastro-esophageal reflux disease without esophagitis; G25.81 Restless legs syndrome; R20.0 Anesthesia of skin; R41.3 Other amnesia; I25.10 Atherosclerotic heart disease of native coronary artery without angina pectoris; E78.5 Hyperlipidemia, unspecified; Z95.1 Presence of aortocoronary bypass graft; I10 Essential (primary) hypertension; J45.909 Unspecified asthma, uncomplicated; R68.89 Other general symptoms and signs; Z79.899 Other long term (current) drug therapy; Z79.2 Long term (current) use of antibiotics; Z79.01 Long term (current) use of anticoagulants; Z79.4 Long term (current) use of insulin; Z79.51 Long term (current) use of inhaled steroids; Z87.891 Personal history of nicotine dependence
CPT/HCPCS: 36415; 71045; 80048; 80076; 82550; 82553; 83036; 83605; 83690; 83735; 84484; 85025; 85379; 87040; 87631; 93005; 93041; 96361; 96374; 96375; 96376; 97161; 97165; 97530; 99285; G0378; J1100

== ENCOUNTER 2022-03-30 19:41 | Inpatient (IN) | payer MEDICARE ==
[~2022-03-30] VITALS: Ht 188 cm; Wt 95.8 kg
[~2022-03-30 19:41] MED LIST changes: +ADV250INH INH; +ALBU2.5V10 INH; +ALBU8.5H INH; +BUPR-332 PO; +CARA1TAB6 PO; +CELE10TA PO; +METO1TAB33 PO; +NITR4TASL SL; +OMEP1CAP73 PO; +POTA1TAB14 PO; +ROPI0.5T3 PO
[2022-03-30 21:48] LABS: BASO % 0.2 % (0.0-1.0); EOS % 0.1 % (0.0-3.0); HEMATOCRIT 43.5 % (42.0-52.0); HEMOGLOBIN 15.4 g/dl (13.5-17.5); LYMPH # 1.8 10^3/uL (1.5-5.0); LYMPH % 12.2 % (24.0-44.0); MEAN CORPUSCULAR HEMOGLOBIN 35.7 pg (27.0-33.0); MEAN CORPUSCULAR HGB CONC 35.4 g/dl (32.0-36.5); MEAN CORPUSCULAR VOLUME 100.9 fl (80.0-96.0); MONO % 7.1 % (2.0-8.0); NEUTROPHILS # 11.8 10^3/uL (1.5-8.5); NEUTROPHILS % 79.9 % (36.0-66.0); PLATELET COUNT, AUTOMATED 238 10^3/uL (150-450); RED BLOOD COUNT 4.31 10^6/uL (4.30-6.10); WHITE BLOOD COUNT 14.7 10^3/uL (4.0-10.0)
[2022-03-30 22:09] LABS: ALBUMIN 3.3 GM/DL (3.2-5.2); ALT/SGPT 55 U/L (12-78); BILIRUBIN,DIRECT 0.2 MG/DL (0.0-0.2); BLOOD UREA NITROGEN 20 MG/DL (7-18); CALCIUM LEVEL 9.1 MG/DL (8.8-10.2); CARBON DIOXIDE LEVEL 28 MEQ/L (21-32); CHLORIDE LEVEL 104 MEQ/L (98-107); CK-MB VALUE MASS 6.7 NG/ML (<3.6); CREATININE FOR GFR 1.26 MG/DL (0.70-1.30); GLOMERULAR FILTRATION RATE > 60.0 (>42); GLUCOSE, FASTING 209 MG/DL (70-100); MB/CK RELATIVE INDEX 2.06 (< OR =4); POTASSIUM SERUM 4.7 MEQ/L (3.5-5.1); SODIUM LEVEL 138 MEQ/L (136-145); TOTAL PROTEIN 7.3 GM/DL (6.4-8.2)
[2022-03-30 22:18] LABS: RSV AMPLIFICATION NEGATIVE (NEGATIVE)
[2022-03-31] MEDS ORDERED: ISOVUE-370 76% 100ML VIAL As Ordered ONE (00:20)
[2022-03-31] MEDS ORDERED: METO1TAB7 PO (04:10)
[2022-03-31] MEDS ORDERED: PRED10TA2 PO (04:10)
[2022-03-31] MEDS ORDERED: TRUL10IN SC (04:10)
[2022-03-31] MEDS ORDERED: EZET10TA21 PO (04:10)
[2022-03-31] MEDS ORDERED: HOME MED LIST COMPLETE! XX SCH (04:15)
[2022-03-31] MEDS ORDERED: ASPIRIN 81 MG CHEW TABLET PO ONE (05:15)
[2022-03-31] MEDS ORDERED: GLUCAGON INJ 1MG VIAL SC PRN (05:15)
[2022-03-31] MEDS ORDERED: DEXTROSE 50% 50 ML SYRINGE IV PRN (05:15)
[2022-03-31] MEDS ORDERED: GLUCOSE 4GM CHEW TABLET PO PRN (05:15)
[2022-03-31] MEDS ORDERED: ACETAMINOPHEN TAB 650MG DOSE (2X325MG) PO PRN (05:15)
[2022-03-31] MEDS ORDERED: HEPARIN SOD (PORCINE) 5000UNITS/ML 1ML VIAL/SYRINGE SC SCH (06:00)
[2022-03-31] MEDS: CLOPIDOGREL 75 MG TAB PO SCH (06:46)
[2022-03-31] MEDS: INSULIN LISPRO (NovoLOG) PER UNIT SC SCH ×3 (07:30→17:45)
[2022-03-31 07:55] LABS: BASO % 0.2 % (0.0-1.0); EOS % 0.1 % (0.0-3.0); HEMATOCRIT 44.2 % (42.0-52.0); HEMOGLOBIN 15.5 g/dl (13.5-17.5); LYMPH # 1.7 10^3/uL (1.5-5.0); LYMPH % 10.8 % (24.0-44.0); MEAN CORPUSCULAR HEMOGLOBIN 35.6 pg (27.0-33.0); MEAN CORPUSCULAR HGB CONC 35.1 g/dl (32.0-36.5); MEAN CORPUSCULAR VOLUME 101.6 fl (80.0-96.0); MONO # 1.2 10^3/uL (0.0-0.8); MONO % 7.4 % (2.0-8.0); NEUTROPHILS % 81.1 % (36.0-66.0); PLATELET COUNT, AUTOMATED 224 10^3/uL (150-450); RED BLOOD COUNT 4.35 10^6/uL (4.30-6.10)
[2022-03-31] MEDS: ADVAIR HFA 115/21MCG INHALER INH SCH ×2 (08:00→19:17)
[2022-03-31 08:04] LABS: BLOOD UREA NITROGEN 17 MG/DL (7-18); CALCIUM LEVEL 9.1 MG/DL (8.8-10.2); CARBON DIOXIDE LEVEL 29 MEQ/L (21-32); CHLORIDE LEVEL 104 MEQ/L (98-107); CHOLESTEROL LEVEL 145 MG/DL (<200); CHOLESTEROL RISK RATIO 4.393 (<5); CREATININE FOR GFR 1.11 MG/DL (0.70-1.30); GLOMERULAR FILTRATION RATE > 60.0 (>42); GLUCOSE, FASTING 125 MG/DL (70-100); HDL CHOLESTEROL 33 MG/DL (>40); LDL CHOLESTEROL 78 MG/DL (<100); MAGNESIUM LEVEL 1.5 MG/DL (1.8-2.4); NON-HDL-C 112 MG/DL; POTASSIUM SERUM 3.6 MEQ/L (3.5-5.1); SODIUM LEVEL 138 MEQ/L (136-145); TRIGLYCERIDES LEVEL 169 MG/DL (<150)
[2022-03-31] MEDS ORDERED: ALBUTEROL SULFATE 2.5 MG/0.5 ML INH NEB SOLN INH PRN (08:55)
[2022-03-31] MEDS ORDERED: ALBUTEROL 90 MCG/ACT 8GM HFA INHALER INH PRN (08:55)
[2022-03-31] MEDS: OMEPRAZOLE 20MG CAP PO SCH (09:00)
[2022-03-31] MEDS: EZETIMIBE 10MG TABLET (ZETIA) PO SCH (09:00)
[2022-03-31] MEDS: buPROPion **XL** TABLET 150MG (WELLBUTRIN XL) PO SCH (09:00)
[2022-03-31] MEDS: POTASSIUM CHLORIDE 10MEQ SR TABLET PO SCH (09:00)
[2022-03-31] MEDS ORDERED: MAG SULF 1GM/100ML (MAG RUN) 1 GM in IV 1 EA IV ONE (09:00)
[2022-03-31 10:30] VITALS: BP 133/84
[2022-03-31] MEDS: CitaloPRAM (CeleXA) 10 MG TABLET PO SCH (11:43)
[2022-03-31 14:00] VITALS: BP 137/78
[2022-03-31] MEDS: rOPINIRole 0.25 MG TAB(REQUIP) PO SCH ×2 (17:45→20:37)
[2022-03-31] MEDS: RIVAROXABAN 20MG TAB (XARELTO) PO SCH (17:45)
[2022-03-31] MEDS: METOPROLOL SUCC (TopROL XL) 50MG **XL** TAB PO SCH (17:46)
[2022-03-31] MEDS ORDERED: INSULIN LISPRO (NovoLOG) PER UNIT SC SCH (21:00)
[2022-03-31] MEDS ORDERED: LEVEMIR (INSULIN DETEMIR) 1 UNITS/0.01ML SC SCH (21:00)
[2022-03-31 22:00] VITALS: BP 138/77
[2022-03-31] MEDS: SINEMET 25-100 MG TAB PO SCH (22:39)
[2022-04-01 05:02] VITALS: BP 137/80
[2022-04-01 06:28] LABS: HEMATOCRIT 44.6 % (42.0-52.0); HEMOGLOBIN 15.5 g/dl (13.5-17.5); MEAN CORPUSCULAR HEMOGLOBIN 35.1 pg (27.0-33.0); MEAN CORPUSCULAR HGB CONC 34.8 g/dl (32.0-36.5); MEAN CORPUSCULAR VOLUME 101.1 fl (80.0-96.0); PLATELET COUNT, AUTOMATED 207 10^3/uL (150-450); RED BLOOD COUNT 4.41 10^6/uL (4.30-6.10); WHITE BLOOD COUNT 14.8 10^3/uL (4.0-10.0)
[2022-04-01 07:04] LABS: BLOOD UREA NITROGEN 20 MG/DL (7-18); CALCIUM LEVEL 9.3 MG/DL (8.8-10.2); CARBON DIOXIDE LEVEL 25 MEQ/L (21-32); CHLORIDE LEVEL 102 MEQ/L (98-107); CREATININE FOR GFR 1.19 MG/DL (0.70-1.30); GLOMERULAR FILTRATION RATE > 60.0 (>42); GLUCOSE, FASTING 235 MG/DL (70-100); MAGNESIUM LEVEL 1.8 MG/DL (1.8-2.4); SODIUM LEVEL 135 MEQ/L (136-145)
[2022-04-01] MEDS: ADVAIR HFA 115/21MCG INHALER INH SCH (08:00)
[2022-04-01] MEDS: INSULIN LISPRO (NovoLOG) PER UNIT SC SCH ×4 (08:41→18:19)
[2022-04-01] MEDS: buPROPion **XL** TABLET 150MG (WELLBUTRIN XL) PO SCH (08:43)
[2022-04-01] MEDS: EZETIMIBE 10MG TABLET (ZETIA) PO SCH (08:43)
[2022-04-01] MEDS: OMEPRAZOLE 20MG CAP PO SCH (08:43)
[2022-04-01] MEDS: rOPINIRole 0.25 MG TAB(REQUIP) PO SCH ×2 (08:44→15:06)
[2022-04-01] MEDS: POTASSIUM CHLORIDE 10MEQ SR TABLET PO SCH (08:44)
[2022-04-01] MEDS: SINEMET 25-100 MG TAB PO SCH ×2 (08:44→15:06)
[2022-04-01] MEDS: CLOPIDOGREL 75 MG TAB PO SCH (08:45)
[2022-04-01] MEDS: METOPROLOL SUCC (TopROL XL) 50MG **XL** TAB PO SCH (08:45)
[2022-04-01] MEDS: CitaloPRAM (CeleXA) 10 MG TABLET PO SCH (08:45)
[2022-04-01] MEDS ORDERED: ASPIRIN 81 MG CHEW TABLET PO SCH (09:00)
[2022-04-01] MEDS ORDERED: D5W/0.9% SODIUM CHLORIDE 1,000 ML IV SCH (11:15)
[2022-04-01 14:00] VITALS: BP 143/78
[2022-04-01] MEDS: RIVAROXABAN 20MG TAB (XARELTO) PO SCH (15:06)
[2022-04-01] MEDS ORDERED: VARIBAR NECTAR 40% w/v 240ML SUSP BTL As Ordered ONE (15:19)
[2022-04-01] MEDS ORDERED: VARIBAR PUDDING 40% w/v 230ML TUBE As Ordered ONE (15:19)
[2022-04-01] MEDS ORDERED: BARIUM SULFATE 700 MG TABLET (E-Z-DISK) As Ordered ONE (15:19)
[2022-04-01] MEDS ORDERED: E-Z-PAQUE 96% w/w SUSP 176GM BTL As Ordered ONE (15:19)
[2022-04-01] MEDS ORDERED: ACETAMINOPHEN 650 MG SUPP PR PRN (15:25)
[2022-04-01] MEDS: KCL 20MEQ IN D5/NS 1000ML 1,000 ML IV SCH (16:39)
[2022-04-01 18:54] VITALS: BP 139/84
[2022-04-01 19:50] VITALS: BP 142/81
[2022-04-01] MEDS: ENOXAPARIN 40MG/0.4ML SYRINGE (J1650 PER 10MG) SC SCH (20:30)
[2022-04-01] MEDS ORDERED: LEVEMIR (INSULIN DETEMIR) 1 UNITS/0.01ML SC SCH ×4 (21:00)
[2022-04-01 23:57] VITALS: BP 138/88
[2022-04-02] VITALS (18 sets, daily range): BP systolic 132–172; BP diastolic 73–100
[2022-04-02] MEDS: KCL 20MEQ IN D5/NS 1000ML 1,000 ML IV SCH ×3 (01:09→17:00)
[2022-04-02 07:08] LABS: HEMATOCRIT 44.3 % (42.0-52.0); MEAN CORPUSCULAR HGB CONC 33.9 g/dl (32.0-36.5); MEAN CORPUSCULAR VOLUME 103.3 fl (80.0-96.0); PLATELET COUNT, AUTOMATED 192 10^3/uL (150-450); RED BLOOD COUNT 4.29 10^6/uL (4.30-6.10); WHITE BLOOD COUNT 11.2 10^3/uL (4.0-10.0)
[2022-04-02] MEDS: ADVAIR HFA 115/21MCG INHALER INH SCH ×2 (07:30→19:53)
[2022-04-02 07:33] LABS: BLOOD UREA NITROGEN 19 MG/DL (7-18); CALCIUM LEVEL 10.1 MG/DL (8.8-10.2); CARBON DIOXIDE LEVEL 26 MEQ/L (21-32); CHLORIDE LEVEL 107 MEQ/L (98-107); CREATININE FOR GFR 1.06 MG/DL (0.70-1.30); GLOMERULAR FILTRATION RATE > 60.0 (>42); GLUCOSE, FASTING 242 MG/DL (70-100); PHOSPHORUS LEVEL 2.9 MG/DL (2.5-4.9); POTASSIUM SERUM 4.1 MEQ/L (3.5-5.1); SODIUM LEVEL 141 MEQ/L (136-145)
[2022-04-02] MEDS: PANTOPRAZOLE 40MG VIAL IV SCH (08:35)
[2022-04-02] MEDS: ENOXAPARIN 40MG/0.4ML SYRINGE (J1650 PER 10MG) SC SCH ×2 (08:36→20:18)
[2022-04-02] MEDS: ASPIRIN 300 MG SUPP PR SCH (08:36)
[2022-04-02] MEDS: METOPROLOL 5 MG/5 ML VIAL IV SCH ×3 (08:37→20:00)
[2022-04-02] MEDS ORDERED: ASPIRIN 300 MG SUPP PR SCH (09:00)
[2022-04-02] MEDS: LEVEMIR (INSULIN DETEMIR) 1 UNITS/0.01ML SC SCH (20:19)
[2022-04-03] VITALS (23 sets, daily range): BP systolic 128–175; BP diastolic 78–103
[2022-04-03] MEDS: KCL 20MEQ IN D5/NS 1000ML 1,000 ML IV SCH ×3 (00:24→17:58)
[2022-04-03] MEDS: METOPROLOL 5 MG/5 ML VIAL IV SCH ×4 (01:18→20:31)
[2022-04-03] MEDS ORDERED: hydrALAZINE 20MG/ML 1ML VIAL (J0360 PER 20MG) IV ONE (04:20)
[2022-04-03 07:33] LABS: HEMATOCRIT 42.6 % (42.0-52.0); HEMOGLOBIN 14.7 g/dl (13.5-17.5); MEAN CORPUSCULAR HGB CONC 34.5 g/dl (32.0-36.5); MEAN CORPUSCULAR VOLUME 104.4 fl (80.0-96.0); PLATELET COUNT, AUTOMATED 195 10^3/uL (150-450); RED BLOOD COUNT 4.08 10^6/uL (4.30-6.10); WHITE BLOOD COUNT 7.9 10^3/uL (4.0-10.0)
[2022-04-03] MEDS: ADVAIR HFA 115/21MCG INHALER INH SCH ×2 (07:41→20:00)
[2022-04-03 07:54] LABS: BLOOD UREA NITROGEN 19 MG/DL (7-18); CALCIUM LEVEL 9.6 MG/DL (8.8-10.2); CARBON DIOXIDE LEVEL 25 MEQ/L (21-32); CHLORIDE LEVEL 110 MEQ/L (98-107); CREATININE FOR GFR 1.04 MG/DL (0.70-1.30); GLOMERULAR FILTRATION RATE > 60.0 (>42); GLUCOSE, FASTING 310 MG/DL (70-100); POTASSIUM SERUM 4.2 MEQ/L (3.5-5.1); SODIUM LEVEL 141 MEQ/L (136-145)
[2022-04-03] MEDS: ENOXAPARIN 40MG/0.4ML SYRINGE (J1650 PER 10MG) SC SCH ×2 (09:00→20:32)
[2022-04-03] MEDS: PANTOPRAZOLE 40MG VIAL IV SCH (09:02)
[2022-04-03] MEDS: ASPIRIN 300 MG SUPP PR SCH (09:02)
[2022-04-03] MEDS: INSULIN LISPRO (NovoLOG) PER UNIT SC SCH (17:58)
[2022-04-03] MEDS: LEVEMIR (INSULIN DETEMIR) 1 UNITS/0.01ML SC SCH (20:32)
[2022-04-04] VITALS (11 sets, daily range): BP systolic 132–180; BP diastolic 81–103
[2022-04-04] MEDS: INSULIN LISPRO (NovoLOG) PER UNIT SC SCH ×4 (01:46→18:21)
[2022-04-04] MEDS: METOPROLOL 5 MG/5 ML VIAL IV SCH ×4 (01:46→21:36)
[2022-04-04] MEDS: KCL 20MEQ IN D5/NS 1000ML 1,000 ML IV SCH (01:47)
[2022-04-04 05:41] LABS: HEMATOCRIT 42.6 % (42.0-52.0); HEMOGLOBIN 14.3 g/dl (13.5-17.5); MEAN CORPUSCULAR HEMOGLOBIN 35.6 pg (27.0-33.0); MEAN CORPUSCULAR HGB CONC 33.6 g/dl (32.0-36.5); PLATELET COUNT, AUTOMATED 187 10^3/uL (150-450); RED BLOOD COUNT 4.02 10^6/uL (4.30-6.10); WHITE BLOOD COUNT 6.5 10^3/uL (4.0-10.0)
[2022-04-04 06:11] LABS: BLOOD UREA NITROGEN 16 MG/DL (7-18); CALCIUM LEVEL 9.4 MG/DL (8.8-10.2); CARBON DIOXIDE LEVEL 25 MEQ/L (21-32); CHLORIDE LEVEL 113 MEQ/L (98-107); GLOMERULAR FILTRATION RATE > 60.0 (>42); GLUCOSE, FASTING 265 MG/DL (70-100); POTASSIUM SERUM 4.2 MEQ/L (3.5-5.1); SODIUM LEVEL 145 MEQ/L (136-145)
[2022-04-04] MEDS: KCL 20MEQ IN D5/0.45NS 1000ML 1,000 ML IV SCH ×2 (07:45→15:51)
[2022-04-04] MEDS: ADVAIR HFA 115/21MCG INHALER INH SCH ×2 (07:59→19:59)
[2022-04-04] MEDS: ASPIRIN 300 MG SUPP PR SCH ×2 (08:54→09:00)
[2022-04-04] MEDS: PANTOPRAZOLE 40MG VIAL IV SCH (08:54)
[2022-04-04] MEDS: ENOXAPARIN 40MG/0.4ML SYRINGE (J1650 PER 10MG) SC SCH ×2 (08:54→21:36)
[2022-04-04] MEDS ORDERED: VARIBAR PUDDING 40% w/v 230ML TUBE As Ordered ONE (10:43)
[2022-04-04] MEDS ORDERED: BARIUM SULFATE 700 MG TABLET (E-Z-DISK) As Ordered ONE (10:43)
[2022-04-04] MEDS ORDERED: E-Z-PAQUE 96% w/w SUSP 176GM BTL As Ordered ONE (10:43)
[2022-04-04] MEDS ORDERED: VARIBAR NECTAR 40% w/v 240ML SUSP BTL As Ordered ONE (10:43)
[2022-04-04] MEDS ORDERED: LEVEMIR (INSULIN DETEMIR) 1 UNITS/0.01ML SC SCH (21:00)
[2022-04-05] VITALS (7 sets, daily range): BP systolic 119–150; BP diastolic 63–96
[2022-04-05] MEDS: KCL 20MEQ IN D5/0.45NS 1000ML 1,000 ML IV SCH ×3 (00:24→16:39)
[2022-04-05] MEDS: INSULIN LISPRO (NovoLOG) PER UNIT SC SCH ×5 (01:01→23:23)
[2022-04-05] MEDS: METOPROLOL 5 MG/5 ML VIAL IV SCH ×4 (02:17→20:54)
[2022-04-05 05:41] LABS: HEMATOCRIT 44.3 % (42.0-52.0); HEMOGLOBIN 14.8 g/dl (13.5-17.5); MEAN CORPUSCULAR HEMOGLOBIN 35.6 pg (27.0-33.0); MEAN CORPUSCULAR HGB CONC 33.4 g/dl (32.0-36.5); MEAN CORPUSCULAR VOLUME 106.5 fl (80.0-96.0); PLATELET COUNT, AUTOMATED 181 10^3/uL (150-450); RED BLOOD COUNT 4.16 10^6/uL (4.30-6.10); WHITE BLOOD COUNT 6.8 10^3/uL (4.0-10.0)
[2022-04-05 06:02] LABS: BLOOD UREA NITROGEN 15 MG/DL (7-18); CALCIUM LEVEL 8.8 MG/DL (8.8-10.2); CARBON DIOXIDE LEVEL 28 MEQ/L (21-32); CHLORIDE LEVEL 108 MEQ/L (98-107); CREATININE FOR GFR 0.92 MG/DL (0.70-1.30); GLOMERULAR FILTRATION RATE > 60.0 (>42); GLUCOSE, FASTING 213 MG/DL (70-100); POTASSIUM SERUM 4.1 MEQ/L (3.5-5.1); SODIUM LEVEL 142 MEQ/L (136-145)
[2022-04-05] MEDS: ADVAIR HFA 115/21MCG INHALER INH SCH ×2 (07:25→19:55)
[2022-04-05] MEDS: ASPIRIN 300 MG SUPP PR SCH (08:02)
[2022-04-05] MEDS: PANTOPRAZOLE 40MG VIAL IV SCH (08:02)
[2022-04-05] MEDS: ENOXAPARIN 40MG/0.4ML SYRINGE (J1650 PER 10MG) SC SCH ×2 (08:02→20:52)
[2022-04-05] MEDS ORDERED: LEVEMIR (INSULIN DETEMIR) 1 UNITS/0.01ML SC SCH ×2 (21:00)
[2022-04-06] VITALS (7 sets, daily range): BP systolic 126–153; BP diastolic 74–98
[2022-04-06] MEDS: KCL 20MEQ IN D5/0.45NS 1000ML 1,000 ML IV SCH ×3 (01:20→17:23)
[2022-04-06] MEDS: METOPROLOL 5 MG/5 ML VIAL IV SCH ×4 (01:50→20:56)
[2022-04-06] MEDS: INSULIN LISPRO (NovoLOG) PER UNIT SC SCH ×3 (05:16→17:24)
[2022-04-06 05:37] LABS: BASO % 0.3 % (0.0-1.0); EOS % 0.3 % (0.0-3.0); HEMATOCRIT 43.6 % (42.0-52.0); HEMOGLOBIN 14.5 g/dl (13.5-17.5); LYMPH # 1.1 10^3/uL (1.5-5.0); LYMPH % 10.6 % (24.0-44.0); MEAN CORPUSCULAR HEMOGLOBIN 34.6 pg (27.0-33.0); MEAN CORPUSCULAR HGB CONC 33.3 g/dl (32.0-36.5); MEAN CORPUSCULAR VOLUME 104.1 fl (80.0-96.0); MONO # 0.7 10^3/uL (0.0-0.8); MONO % 6.3 % (2.0-8.0); NEUTROPHILS # 8.7 10^3/uL (1.5-8.5); PLATELET COUNT, AUTOMATED 198 10^3/uL (150-450); RED BLOOD COUNT 4.19 10^6/uL (4.30-6.10); WHITE BLOOD COUNT 10.5 10^3/uL (4.0-10.0)
[2022-04-06 05:59] LABS: ALBUMIN 2.5 GM/DL (3.2-5.2); ALT/SGPT 39 U/L (12-78); BILIRUBIN,TOTAL 3.7 MG/DL (0.2-1.0); BLOOD UREA NITROGEN 14 MG/DL (7-18); CALCIUM LEVEL 8.4 MG/DL (8.8-10.2); CARBON DIOXIDE LEVEL 24 MEQ/L (21-32); CHLORIDE LEVEL 105 MEQ/L (98-107); CREATININE FOR GFR 0.92 MG/DL (0.70-1.30); GLOMERULAR FILTRATION RATE > 60.0 (>42); GLUCOSE, FASTING 257 MG/DL (70-100); MAGNESIUM LEVEL 1.5 MG/DL (1.8-2.4); POTASSIUM SERUM 4.6 MEQ/L (3.5-5.1); SODIUM LEVEL 137 MEQ/L (136-145); TOTAL PROTEIN 6.7 GM/DL (6.4-8.2)
[2022-04-06] MEDS: ADVAIR HFA 115/21MCG INHALER INH SCH ×2 (07:17→19:58)
[2022-04-06] MEDS: ENOXAPARIN 40MG/0.4ML SYRINGE (J1650 PER 10MG) SC SCH (08:26)
[2022-04-06] MEDS: MAG SULF 1GM/100ML (MAG RUN) 1 GM in IV 1 EA IV SCH ×2 (08:26→09:33)
[2022-04-06] MEDS: PANTOPRAZOLE 40MG VIAL IV SCH (08:26)
[2022-04-06] MEDS: ASPIRIN 300 MG SUPP PR SCH (08:26)
[2022-04-06] MEDS: LEVEMIR (INSULIN DETEMIR) 1 UNITS/0.01ML SC SCH (20:56)
[2022-04-07] VITALS (8 sets, daily range): BP systolic 116–152; BP diastolic 65–91
[2022-04-07] MEDS: INSULIN LISPRO (NovoLOG) PER UNIT SC SCH ×4 (00:18→18:36)
[2022-04-07] MEDS: KCL 20MEQ IN D5/0.45NS 1000ML 1,000 ML IV SCH ×2 (01:24→10:12)
[2022-04-07] MEDS: METOPROLOL 5 MG/5 ML VIAL IV SCH ×2 (03:05→08:37)
[2022-04-07 05:21] LABS: BASO % 0.3 % (0.0-1.0); EOS # 0.1 10^3/uL (0.0-0.5); EOS % 0.5 % (0.0-3.0); HEMOGLOBIN 14.9 g/dl (13.5-17.5); LYMPH # 1.3 10^3/uL (1.5-5.0); LYMPH % 12.9 % (24.0-44.0); MEAN CORPUSCULAR HEMOGLOBIN 35.1 pg (27.0-33.0); MEAN CORPUSCULAR HGB CONC 33.9 g/dl (32.0-36.5); MEAN CORPUSCULAR VOLUME 103.5 fl (80.0-96.0); MONO # 0.8 10^3/uL (0.0-0.8); MONO % 7.7 % (2.0-8.0); NEUTROPHILS # 7.7 10^3/uL (1.5-8.5); PLATELET COUNT, AUTOMATED 206 10^3/uL (150-450); RED BLOOD COUNT 4.25 10^6/uL (4.30-6.10); WHITE BLOOD COUNT 9.8 10^3/uL (4.0-10.0)
[2022-04-07 05:57] LABS: ALBUMIN 2.6 GM/DL (3.2-5.2); ALT/SGPT 46 U/L (12-78); BLOOD UREA NITROGEN 13 MG/DL (7-18); CALCIUM LEVEL 8.4 MG/DL (8.8-10.2); CARBON DIOXIDE LEVEL 26 MEQ/L (21-32); CHLORIDE LEVEL 102 MEQ/L (98-107); CREATININE FOR GFR 0.91 MG/DL (0.70-1.30); GLOMERULAR FILTRATION RATE > 60.0 (>42); GLUCOSE, FASTING 225 MG/DL (70-100); MAGNESIUM LEVEL 1.7 MG/DL (1.8-2.4); POTASSIUM SERUM 4.5 MEQ/L (3.5-5.1); SODIUM LEVEL 134 MEQ/L (136-145)
[2022-04-07] MEDS ORDERED: MAG SULF 1GM/100ML (MAG RUN) 1 GM in IV 1 EA IV ONE (07:00)
[2022-04-07] MEDS: ADVAIR HFA 115/21MCG INHALER INH SCH ×2 (07:41→20:29)
[2022-04-07] MEDS: PANTOPRAZOLE 40MG VIAL IV SCH (08:36)
[2022-04-07] MEDS: ASPIRIN 300 MG SUPP PR SCH (09:26)
[2022-04-07] MEDS ORDERED: propofoL 200 MG/20 ML VIAL As Ordered ONE (14:06)
[2022-04-07] MEDS ORDERED: LIDOCAINE 2% 100MG/5ML SDV (FOR ANES.) As Ordered ONE (14:06)
[2022-04-07] MEDS ORDERED: fentaNYL 100 MCG/2 ML INJECTION As Ordered ONE (14:06)
[2022-04-07] MEDS ORDERED: rOPINIRole 2MG TAB NG SCH (16:00)
[2022-04-07] MEDS: SINEMET 25-100 MG TAB NG SCH ×2 (17:00→21:32)
[2022-04-07] MEDS: rOPINIRole 0.25 MG TAB(REQUIP) NG SCH (17:00)
[2022-04-07] MEDS ORDERED: RIVAROXABAN 20MG TAB (XARELTO) TF SCH (18:00)
[2022-04-07] MEDS: LEVEMIR (INSULIN DETEMIR) 1 UNITS/0.01ML SC SCH (21:32)
[2022-04-08] VITALS (8 sets, daily range): BP systolic 101–170; BP diastolic 67–84
[2022-04-08] MEDS: ACETAMINOPHEN 325 MG/10.15 ML UDC NG PRN ×2 (00:50→23:52)
[2022-04-08] MEDS: rOPINIRole 0.25 MG TAB(REQUIP) NG SCH ×4 (00:50→23:50)
[2022-04-08] MEDS: INSULIN LISPRO (NovoLOG) PER UNIT SC SCH ×5 (00:51→23:47)
[2022-04-08] MEDS ORDERED: METOPROLOL SUCC (TopROL XL) 50MG **XL** TAB PO SCH ×2 (05:00→09:00)
[2022-04-08] MEDS ORDERED: METOPROLOL 5 MG/5 ML VIAL IV ONE ×2 (05:00)
[2022-04-08 05:24] LABS: BASO % 0.2 % (0.0-1.0); EOS % 0.4 % (0.0-3.0); HEMATOCRIT 44.4 % (42.0-52.0); HEMOGLOBIN 15.1 g/dl (13.5-17.5); LYMPH # 1.5 10^3/uL (1.5-5.0); MEAN CORPUSCULAR HEMOGLOBIN 35.1 pg (27.0-33.0); MEAN CORPUSCULAR VOLUME 103.3 fl (80.0-96.0); MONO # 0.8 10^3/uL (0.0-0.8); MONO % 8.8 % (2.0-8.0); NEUTROPHILS # 6.8 10^3/uL (1.5-8.5); NEUTROPHILS % 74.2 % (36.0-66.0); PLATELET COUNT, AUTOMATED 227 10^3/uL (150-450); WHITE BLOOD COUNT 9.2 10^3/uL (4.0-10.0)
[2022-04-08 05:46] LABS: ALBUMIN 2.6 GM/DL (3.2-5.2); ALT/SGPT 20 U/L (12-78); BILIRUBIN,TOTAL 3.6 MG/DL (0.2-1.0); BLOOD UREA NITROGEN 16 MG/DL (7-18); CALCIUM LEVEL 8.7 MG/DL (8.8-10.2); CARBON DIOXIDE LEVEL 24 MEQ/L (21-32); CHLORIDE LEVEL 101 MEQ/L (98-107); CREATININE FOR GFR 0.85 MG/DL (0.70-1.30); GLOMERULAR FILTRATION RATE > 60.0 (>42); GLUCOSE, FASTING 188 MG/DL (70-100); MAGNESIUM LEVEL 1.8 MG/DL (1.8-2.4); POTASSIUM SERUM 4.2 MEQ/L (3.5-5.1); SODIUM LEVEL 133 MEQ/L (136-145)
[2022-04-08] MEDS: ADVAIR HFA 115/21MCG INHALER INH SCH ×2 (08:19→19:16)
[2022-04-08] MEDS: CitaloPRAM (CeleXA) 10 MG TABLET NG SCH (08:42)
[2022-04-08] MEDS: METOPROLOL TART 50 MG TAB NG SCH ×2 (08:43→23:50)
[2022-04-08] MEDS: EZETIMIBE 10MG TABLET (ZETIA) NG SCH (08:44)
[2022-04-08] MEDS: CLOPIDOGREL 75 MG TAB NG SCH (08:44)
[2022-04-08] MEDS: SINEMET 25-100 MG TAB NG SCH ×3 (08:44→23:50)
[2022-04-08] MEDS: POTASSIUM CHLORIDE 10MEQ SR TABLET PO SCH ×2 (08:44→09:00)
[2022-04-08] MEDS ORDERED: PANTOPRAZOLE 40MG TAB (PROTONIX) PO SCH (09:00)
[2022-04-08] MEDS ORDERED: ASPIRIN 81MG ENTERIC TABLET PO SCH (09:00)
[2022-04-08] MEDS ORDERED: buPROPion **XL** TABLET 150MG (WELLBUTRIN XL) PO SCH (09:00)
[2022-04-08] MEDS ORDERED: lisinopriL 5 MG TAB PO SCH (09:00)
[2022-04-08] MEDS: ASPIRIN 81 MG CHEW TABLET NG SCH (11:48)
[2022-04-08] MEDS: PANTOPRAZOLE 40MG VIAL IV SCH (11:49)
[2022-04-08] MEDS: ENOXAPARIN 100MG/1ML SYRINGE (J1650 PER 10MG) SC SCH (15:37)
[2022-04-08] MEDS: LEVEMIR (INSULIN DETEMIR) 1 UNITS/0.01ML SC SCH (23:56)
[2022-04-09] MEDS: ENOXAPARIN 100MG/1ML SYRINGE (J1650 PER 10MG) SC SCH ×2 (01:56→14:02)
[2022-04-09] MEDS: NYSTATIN 100,000 UNITS/GM TOPICAL PWD 15 GM TOP SCH ×3 (01:57→22:28)
[2022-04-09 05:54] VITALS: BP 135/82
[2022-04-09] MEDS: INSULIN LISPRO (NovoLOG) PER UNIT SC SCH ×3 (06:23→18:04)
[2022-04-09 06:40] LABS: BASO % 0.2 % (0.0-1.0); EOS % 0.2 % (0.0-3.0); HEMATOCRIT 44.4 % (42.0-52.0); HEMOGLOBIN 15.1 g/dl (13.5-17.5); LYMPH # 1.3 10^3/uL (1.5-5.0); LYMPH % 12.5 % (24.0-44.0); MONO # 0.8 10^3/uL (0.0-0.8); MONO % 8.1 % (2.0-8.0); NEUTROPHILS # 7.8 10^3/uL (1.5-8.5); NEUTROPHILS % 78.4 % (36.0-66.0); PLATELET COUNT, AUTOMATED 293 10^3/uL (150-450); RED BLOOD COUNT 4.31 10^6/uL (4.30-6.10)
[2022-04-09 07:10] LABS: ALBUMIN 2.6 GM/DL (3.2-5.2); ALT/SGPT 22 U/L (12-78); BILIRUBIN,TOTAL 1.6 MG/DL (0.2-1.0); BLOOD UREA NITROGEN 38 MG/DL (7-18); CALCIUM LEVEL 8.7 MG/DL (8.8-10.2); CARBON DIOXIDE LEVEL 22 MEQ/L (21-32); CHLORIDE LEVEL 102 MEQ/L (98-107); CREATININE FOR GFR 1.15 MG/DL (0.70-1.30); GLOMERULAR FILTRATION RATE > 60.0 (>42); GLUCOSE, FASTING 300 MG/DL (70-100); MAGNESIUM LEVEL 2.1 MG/DL (1.8-2.4); POTASSIUM SERUM 4.6 MEQ/L (3.5-5.1); SODIUM LEVEL 135 MEQ/L (136-145); TOTAL PROTEIN 6.9 GM/DL (6.4-8.2)
[2022-04-09] MEDS: ADVAIR HFA 115/21MCG INHALER INH SCH ×2 (08:38→19:29)
[2022-04-09] MEDS ORDERED: ENOXAPARIN 40MG/0.4ML SYRINGE (J1650 PER 10MG) SC SCH (09:00)
[2022-04-09] MEDS: EZETIMIBE 10MG TABLET (ZETIA) NG SCH (11:01)
[2022-04-09] MEDS: PANTOPRAZOLE 40MG VIAL IV SCH (11:01)
[2022-04-09] MEDS: CLOPIDOGREL 75 MG TAB NG SCH (11:01)
[2022-04-09] MEDS: SINEMET 25-100 MG TAB NG SCH ×3 (11:01→22:27)
[2022-04-09] MEDS: CitaloPRAM (CeleXA) 10 MG TABLET NG SCH (11:01)
[2022-04-09] MEDS: rOPINIRole 0.25 MG TAB(REQUIP) NG SCH ×3 (11:01→22:27)
[2022-04-09] MEDS: ASPIRIN 81 MG CHEW TABLET NG SCH (11:01)
[2022-04-09] MEDS: buPROPion 75 MG TAB NG SCH ×2 (11:02→22:27)
[2022-04-09] MEDS: METOPROLOL TART 50 MG TAB NG SCH ×2 (11:09→22:30)
[2022-04-09] MEDS: lisinopriL 5 MG TAB NG SCH (11:10)
[2022-04-09] MEDS: ACETAMINOPHEN 325 MG/10.15 ML UDC NG PRN ×2 (16:12→22:29)
[2022-04-09] MEDS ORDERED: LEVEMIR (INSULIN DETEMIR) 1 UNITS/0.01ML SC SCH (21:00)
[2022-04-09] MEDS: SENOKOT S TAB NG SCH (22:27)
[2022-04-09] MEDS: LEVEMIR (INSULIN DETEMIR) 1 UNITS/0.01ML SC SCH (22:28)
[2022-04-10] MEDS: ENOXAPARIN 100MG/1ML SYRINGE (J1650 PER 10MG) SC SCH ×2 (00:52→12:32)
[2022-04-10] MEDS: INSULIN LISPRO (NovoLOG) PER UNIT SC SCH ×4 (00:52→18:17)
[2022-04-10 05:24] VITALS: BP 122/70
[2022-04-10] MEDS: ACETAMINOPHEN 325 MG/10.15 ML UDC NG PRN ×3 (06:09→22:39)
[2022-04-10 06:35] LABS: BASO % 0.3 % (0.0-1.0); EOS # 0.1 10^3/uL (0.0-0.5); EOS % 1.6 % (0.0-3.0); HEMATOCRIT 43.4 % (42.0-52.0); HEMOGLOBIN 14.7 g/dl (13.5-17.5); LYMPH # 1.2 10^3/uL (1.5-5.0); LYMPH % 15.9 % (24.0-44.0); MEAN CORPUSCULAR HEMOGLOBIN 34.8 pg (27.0-33.0); MEAN CORPUSCULAR HGB CONC 33.9 g/dl (32.0-36.5); MEAN CORPUSCULAR VOLUME 102.8 fl (80.0-96.0); MONO # 0.6 10^3/uL (0.0-0.8); MONO % 7.7 % (2.0-8.0); NEUTROPHILS # 5.7 10^3/uL (1.5-8.5); PLATELET COUNT, AUTOMATED 294 10^3/uL (150-450); RED BLOOD COUNT 4.22 10^6/uL (4.30-6.10); WHITE BLOOD COUNT 7.6 10^3/uL (4.0-10.0)
[2022-04-10 06:57] LABS: ALBUMIN 2.5 GM/DL (3.2-5.2); ALT/SGPT 37 U/L (12-78); BILIRUBIN,TOTAL 0.9 MG/DL (0.2-1.0); BLOOD UREA NITROGEN 42 MG/DL (7-18); CALCIUM LEVEL 9.5 MG/DL (8.8-10.2); CARBON DIOXIDE LEVEL 26 MEQ/L (21-32); CHLORIDE LEVEL 102 MEQ/L (98-107); CREATININE FOR GFR 0.92 MG/DL (0.70-1.30); GLOMERULAR FILTRATION RATE > 60.0 (>42); GLUCOSE, FASTING 250 MG/DL (70-100); MAGNESIUM LEVEL 2.1 MG/DL (1.8-2.4); POTASSIUM SERUM 4.4 MEQ/L (3.5-5.1); SODIUM LEVEL 137 MEQ/L (136-145); TOTAL PROTEIN 6.9 GM/DL (6.4-8.2)
[2022-04-10] MEDS: ADVAIR HFA 115/21MCG INHALER INH SCH ×2 (07:16→19:37)
[2022-04-10] MEDS: SINEMET 25-100 MG TAB NG SCH ×3 (09:23→22:38)
[2022-04-10] MEDS: buPROPion 75 MG TAB NG SCH ×2 (09:23→22:38)
[2022-04-10] MEDS: CLOPIDOGREL 75 MG TAB NG SCH (09:23)
[2022-04-10] MEDS: ASPIRIN 81 MG CHEW TABLET NG SCH (09:24)
[2022-04-10] MEDS: METOPROLOL TART 50 MG TAB NG SCH ×2 (09:24→22:38)
[2022-04-10] MEDS: SENOKOT S TAB NG SCH ×2 (09:24→22:38)
[2022-04-10] MEDS: CitaloPRAM (CeleXA) 10 MG TABLET NG SCH (09:24)
[2022-04-10] MEDS: rOPINIRole 0.25 MG TAB(REQUIP) NG SCH ×3 (09:25→22:38)
[2022-04-10] MEDS: lisinopriL 5 MG TAB NG SCH (09:26)
[2022-04-10] MEDS: PANTOPRAZOLE 40MG VIAL IV SCH (09:26)
[2022-04-10] MEDS: LEVEMIR (INSULIN DETEMIR) 1 UNITS/0.01ML SC SCH ×2 (09:27→22:24)
[2022-04-10] MEDS: NYSTATIN 100,000 UNITS/GM TOPICAL PWD 15 GM TOP SCH ×2 (09:28→22:38)
[2022-04-10] MEDS: EZETIMIBE 10MG TABLET (ZETIA) NG SCH (09:34)
[2022-04-10] MEDS ORDERED: oxyCODONE 5MG TAB NG PRN (15:00)
[2022-04-10 21:57] VITALS: BP 118/66
[2022-04-10] MEDS ORDERED: NS 1,000 ML IV SCH (23:55)
[2022-04-11] MEDS: INSULIN LISPRO (NovoLOG) PER UNIT SC SCH ×4 (05:20→17:41)
[2022-04-11 06:00] VITALS: BP 124/70
[2022-04-11 06:26] LABS: BASO % 0.4 % (0.0-1.0); EOS # 0.1 10^3/uL (0.0-0.5); EOS % 1.3 % (0.0-3.0); HEMATOCRIT 43.3 % (42.0-52.0); HEMOGLOBIN 14.5 g/dl (13.5-17.5); LYMPH # 1.4 10^3/uL (1.5-5.0); LYMPH % 18.5 % (24.0-44.0); MEAN CORPUSCULAR HEMOGLOBIN 34.8 pg (27.0-33.0); MEAN CORPUSCULAR HGB CONC 33.5 g/dl (32.0-36.5); MEAN CORPUSCULAR VOLUME 103.8 fl (80.0-96.0); MONO # 0.7 10^3/uL (0.0-0.8); NEUTROPHILS # 5.2 10^3/uL (1.5-8.5); NEUTROPHILS % 70.3 % (36.0-66.0); PLATELET COUNT, AUTOMATED 293 10^3/uL (150-450); RED BLOOD COUNT 4.17 10^6/uL (4.30-6.10); WHITE BLOOD COUNT 7.4 10^3/uL (4.0-10.0)
[2022-04-11 07:03] LABS: ALBUMIN 2.5 GM/DL (3.2-5.2); ALT/SGPT 23 U/L (12-78); BILIRUBIN,TOTAL 0.8 MG/DL (0.2-1.0); BLOOD UREA NITROGEN 37 MG/DL (7-18); CALCIUM LEVEL 9.1 MG/DL (8.8-10.2); CARBON DIOXIDE LEVEL 28 MEQ/L (21-32); CHLORIDE LEVEL 99 MEQ/L (98-107); CREATININE FOR GFR 0.84 MG/DL (0.70-1.30); GLOMERULAR FILTRATION RATE > 60.0 (>42); GLUCOSE, FASTING 212 MG/DL (70-100); MAGNESIUM LEVEL 1.9 MG/DL (1.8-2.4); POTASSIUM SERUM 4.6 MEQ/L (3.5-5.1); SODIUM LEVEL 135 MEQ/L (136-145); TOTAL PROTEIN 6.6 GM/DL (6.4-8.2)
[2022-04-11] MEDS: ADVAIR HFA 115/21MCG INHALER INH SCH ×2 (07:44→19:11)
[2022-04-11] MEDS: lisinopriL 5 MG TAB NG SCH (09:00)
[2022-04-11] MEDS: SINEMET 25-100 MG TAB NG SCH ×3 (09:00→21:00)
[2022-04-11] MEDS: SENOKOT S TAB NG SCH ×2 (09:00→21:00)
[2022-04-11] MEDS: EZETIMIBE 10MG TABLET (ZETIA) NG SCH (09:00)
[2022-04-11] MEDS: CitaloPRAM (CeleXA) 10 MG TABLET NG SCH (09:00)
[2022-04-11] MEDS: NYSTATIN 100,000 UNITS/GM TOPICAL PWD 15 GM TOP SCH ×2 (09:00→21:03)
[2022-04-11] MEDS: LEVEMIR (INSULIN DETEMIR) 1 UNITS/0.01ML SC SCH ×2 (09:00→21:02)
[2022-04-11] MEDS: METOPROLOL TART 50 MG TAB NG SCH ×2 (09:00→21:01)
[2022-04-11] MEDS: rOPINIRole 0.25 MG TAB(REQUIP) NG SCH ×3 (09:00→21:00)
[2022-04-11] MEDS: buPROPion 75 MG TAB NG SCH ×2 (09:00→21:00)
[2022-04-11] MEDS: PANTOPRAZOLE 40MG VIAL IV SCH (09:00)
[2022-04-11] MEDS: ENOXAPARIN 100MG/1ML SYRINGE (J1650 PER 10MG) SC SCH (14:59)
[2022-04-11 17:18] VITALS: BP 138/80
[2022-04-11 22:00] VITALS: BP 136/82
[2022-04-12] MEDS: INSULIN LISPRO (NovoLOG) PER UNIT SC SCH ×4 (00:07→17:04)
[2022-04-12] MEDS: ENOXAPARIN 100MG/1ML SYRINGE (J1650 PER 10MG) SC SCH ×2 (01:12→13:16)
[2022-04-12 06:00] VITALS: BP 138/84
[2022-04-12 06:00] LABS: BASO % 0.2 % (0.0-1.0); EOS % 0.1 % (0.0-3.0); HEMATOCRIT 43.6 % (42.0-52.0); HEMOGLOBIN 15.4 g/dl (13.5-17.5); LYMPH # 1.1 10^3/uL (1.5-5.0); LYMPH % 8.8 % (24.0-44.0); MEAN CORPUSCULAR HEMOGLOBIN 36.1 pg (27.0-33.0); MEAN CORPUSCULAR HGB CONC 35.3 g/dl (32.0-36.5); MEAN CORPUSCULAR VOLUME 102.1 fl (80.0-96.0); MONO # 0.8 10^3/uL (0.0-0.8); MONO % 6.2 % (2.0-8.0); NEUTROPHILS # 10.5 10^3/uL (1.5-8.5); NEUTROPHILS % 84.1 % (36.0-66.0); PLATELET COUNT, AUTOMATED 328 10^3/uL (150-450); RED BLOOD COUNT 4.27 10^6/uL (4.30-6.10); WHITE BLOOD COUNT 12.5 10^3/uL (4.0-10.0)
[2022-04-12 06:35] LABS: ALBUMIN 2.8 GM/DL (3.2-5.2); ALT/SGPT 48 U/L (12-78); BILIRUBIN,TOTAL 0.9 MG/DL (0.2-1.0); BLOOD UREA NITROGEN 31 MG/DL (7-18); CALCIUM LEVEL 9.9 MG/DL (8.8-10.2); CARBON DIOXIDE LEVEL 27 MEQ/L (21-32); CHLORIDE LEVEL 95 MEQ/L (98-107); CREATININE FOR GFR 0.87 MG/DL (0.70-1.30); GLOMERULAR FILTRATION RATE > 60.0 (>42); GLUCOSE, FASTING 293 MG/DL (70-100); MAGNESIUM LEVEL 1.9 MG/DL (1.8-2.4); POTASSIUM SERUM 4.3 MEQ/L (3.5-5.1); SODIUM LEVEL 131 MEQ/L (136-145); TOTAL PROTEIN 8.2 GM/DL (6.4-8.2)
[2022-04-12] MEDS: ADVAIR HFA 115/21MCG INHALER INH SCH ×2 (08:00→19:04)
[2022-04-12] MEDS: CLOPIDOGREL 75 MG TAB NG SCH (09:00)
[2022-04-12] MEDS: rOPINIRole 0.25 MG TAB(REQUIP) NG SCH ×3 (09:55→22:04)
[2022-04-12] MEDS: buPROPion 75 MG TAB NG SCH ×2 (09:55→22:05)
[2022-04-12] MEDS: PANTOPRAZOLE 40MG VIAL IV SCH (09:55)
[2022-04-12] MEDS: LEVEMIR (INSULIN DETEMIR) 1 UNITS/0.01ML SC SCH ×2 (09:55→22:06)
[2022-04-12] MEDS: SINEMET 25-100 MG TAB NG SCH ×3 (09:55→22:04)
[2022-04-12] MEDS: ASPIRIN 81 MG CHEW TABLET NG SCH (09:55)
[2022-04-12] MEDS: CitaloPRAM (CeleXA) 10 MG TABLET NG SCH (09:55)
[2022-04-12] MEDS: SENOKOT S TAB NG SCH ×2 (09:55→22:05)
[2022-04-12] MEDS: METOPROLOL TART 50 MG TAB NG SCH ×2 (09:56→22:05)
[2022-04-12] MEDS: NYSTATIN 100,000 UNITS/GM TOPICAL PWD 15 GM TOP SCH ×2 (09:56→22:06)
[2022-04-12] MEDS: lisinopriL 5 MG TAB NG SCH (09:56)
[2022-04-12] MEDS: EZETIMIBE 10MG TABLET (ZETIA) NG SCH (10:09)
[2022-04-12] MEDS ORDERED: ATORVASTATIN 20 MG TAB PO SCH (21:00)
[2022-04-13] MEDS: ENOXAPARIN 100MG/1ML SYRINGE (J1650 PER 10MG) SC SCH ×2 (01:18→13:00)
[2022-04-13] MEDS: INSULIN LISPRO (NovoLOG) PER UNIT SC SCH ×5 (01:19→18:41)
[2022-04-13] MEDS: ADVAIR HFA 115/21MCG INHALER INH SCH (07:15)
[2022-04-13 07:39] LABS: BASO % 0.2 % (0.0-1.0); EOS # 0.1 10^3/uL (0.0-0.5); EOS % 0.6 % (0.0-3.0); HEMATOCRIT 42.8 % (42.0-52.0); HEMOGLOBIN 14.9 g/dl (13.5-17.5); LYMPH # 1.3 10^3/uL (1.5-5.0); LYMPH % 10.8 % (24.0-44.0); MEAN CORPUSCULAR HEMOGLOBIN 35.6 pg (27.0-33.0); MEAN CORPUSCULAR HGB CONC 34.8 g/dl (32.0-36.5); MEAN CORPUSCULAR VOLUME 102.4 fl (80.0-96.0); MONO # 0.9 10^3/uL (0.0-0.8); MONO % 7.1 % (2.0-8.0); NEUTROPHILS % 80.7 % (36.0-66.0); PLATELET COUNT, AUTOMATED 292 10^3/uL (150-450); RED BLOOD COUNT 4.18 10^6/uL (4.30-6.10); WHITE BLOOD COUNT 12.4 10^3/uL (4.0-10.0)
[2022-04-13 08:21] LABS: BLOOD UREA NITROGEN 31 MG/DL (7-18); CALCIUM LEVEL 9.8 MG/DL (8.8-10.2); CARBON DIOXIDE LEVEL 28 MEQ/L (21-32); CHLORIDE LEVEL 96 MEQ/L (98-107); CREATININE FOR GFR 0.83 MG/DL (0.70-1.30); GLOMERULAR FILTRATION RATE > 60.0 (>42); GLUCOSE, FASTING 261 MG/DL (70-100); MAGNESIUM LEVEL 1.9 MG/DL (1.8-2.4); POTASSIUM SERUM 4.8 MEQ/L (3.5-5.1); SODIUM LEVEL 134 MEQ/L (136-145)
[2022-04-13] MEDS: ASPIRIN 81 MG CHEW TABLET NG SCH ×2 (09:00→10:45)
[2022-04-13] MEDS ORDERED: OMEPRAZOLE SUSPENSION 20MG 10ML ORAL SYRINGE GT SCH (09:00)
[2022-04-13] MEDS: rOPINIRole 0.25 MG TAB(REQUIP) NG SCH ×2 (09:15→16:47)
[2022-04-13] MEDS: SINEMET 25-100 MG TAB NG SCH ×2 (09:15→16:47)
[2022-04-13] MEDS: METOPROLOL TART 50 MG TAB NG SCH (09:15)
[2022-04-13 09:16] VITALS: BP 122/78
[2022-04-13] MEDS: LEVEMIR (INSULIN DETEMIR) 1 UNITS/0.01ML SC SCH (09:16)
[2022-04-13] MEDS: buPROPion 75 MG TAB NG SCH (09:16)
[2022-04-13] MEDS: SENOKOT S TAB NG SCH (09:16)
[2022-04-13] MEDS: lisinopriL 5 MG TAB NG SCH (09:16)
[2022-04-13] MEDS: CitaloPRAM (CeleXA) 10 MG TABLET NG SCH (09:16)
[2022-04-13] MEDS: NYSTATIN 100,000 UNITS/GM TOPICAL PWD 15 GM TOP SCH (09:17)
[2022-04-13] MEDS: EZETIMIBE 10MG TABLET (ZETIA) NG SCH (09:20)
[2022-04-13] MEDS ORDERED: MOM 30ML SUSPENSION UDC PO PRN (10:35)
[2022-04-13] MEDS ORDERED: BISACODYL 10 MG SUPP PR ONE (11:00)
[2022-04-13] MEDS ORDERED: ISOVUE-370 76% 100ML VIAL As Ordered ONE (12:04)
[2022-04-13] MEDS ORDERED: HEPARIN SOD (PORCINE) 5000UNITS/ML 1ML VIAL/SYRINGE IV ONE (14:00)
[2022-04-13] MEDS ORDERED: HEPARIN SOD (PORCINE) 5000UNITS/ML 1ML VIAL/SYRINGE IV PRN (14:00)
[2022-04-13 15:30] VITALS: BP 128/78
[2022-04-13] MEDS ORDERED: ATOR1TAB21 PO (17:24)
[2022-04-13] MEDS ORDERED: LOPR1TAB6 NG (17:24)
[2022-04-13] MEDS ORDERED: NYST10006 TOP (17:24)
[2022-04-13] MEDS ORDERED: INSUDET SC (17:24)
[2022-04-13] MEDS ORDERED: CARB25TA9 NG (17:24)
[2022-04-13] MEDS ORDERED: Omeprazole Suspension GT (17:24)
[2022-04-13] MEDS ORDERED: BUPR75TA5 NG (17:24)
[2022-04-14] MEDS ORDERED: HEPARIN DRIP 25,000 UNITS in IV 1 EA IV SCH ×2
== END 2022-04-13 18:44 | disposition short-term general hospital (02) | DRG 65 ==
LOC: EDBD 19:41 → M ED 19:41 → M ED INP 03-31 05:12 → ENRESERV 03-31 10:00 → M MSPAV 03-31 10:30 → M PCU 04-01 18:44 → M MSPAV 04-08 16:50
PROVIDERS: ADMIT Internal Medicine; ATTEND Internal Medicine
PROC: BW28YZZ Computerized Tomography (CT Scan) of Head using Other Contrast (ICD-10-PCS; principal; 2022-03-31)
PROC: B246ZZZ Ultrasonography of Right and Left Heart (ICD-10-PCS; 2022-03-31)
PROC: 0DJ08ZZ Inspection of Upper Intestinal Tract, Via Natural or Artificial Opening Endoscopic (ICD-10-PCS; 2022-04-07)
DX: I63.9 Cerebral infarction, unspecified (principal); I50.22 Chronic systolic (congestive) heart failure; I69.351 Hemiplegia and hemiparesis following cerebral infarction affecting right dominant side; R29.6 Repeated falls; I48.91 Unspecified atrial fibrillation; Z20.822 Contact with and (suspected) exposure to COVID-19; K21.9 Gastro-esophageal reflux disease without esophagitis; I73.9 Peripheral vascular disease, unspecified; I25.10 Atherosclerotic heart disease of native coronary artery without angina pectoris; E11.51 Type 2 diabetes mellitus with diabetic peripheral angiopathy without gangrene; K44.9 Diaphragmatic hernia without obstruction or gangrene; K29.70 Gastritis, unspecified, without bleeding; R13.10 Dysphagia, unspecified; I11.0 Hypertensive heart disease with heart failure; G20 Parkinson's disease; E11.65 Type 2 diabetes mellitus with hyperglycemia; J44.9 Chronic obstructive pulmonary disease, unspecified; G25.81 Restless legs syndrome; F32.A Depression, unspecified; D72.829 Elevated white blood cell count, unspecified; Z79.84 Long term (current) use of oral hypoglycemic drugs; Z79.4 Long term (current) use of insulin; Z79.899 Other long term (current) drug therapy; I65.1 Occlusion and stenosis of basilar artery; E78.5 Hyperlipidemia, unspecified; E83.42 Hypomagnesemia; L89.616 Pressure-induced deep tissue damage of right heel; K59.00 Constipation, unspecified